=== PATIENT | male | born 1945 | race Caucasian/White ===

== ENCOUNTER → 2019-03-18 07:30 | Outpatient (CLI) | payer MEDICARE, OTHER, SELFPAY ==
[2019-03-18 10:11] LABS: Add Manual Diff / Slide Review NO; Basophils Absolute Auto 100 /uL (0-100); Basophils Percent Auto 1.1 % (0-2); Eosinophils Absolute Auto 100 /uL (0-450); Hematocrit 43.4 % (41-53); Hemoglobin 14.8 g/dL (13.5-17.5); Lymphocytes Absolute Auto 1500 /uL (1100-4500); Lymphocytes Percent Auto 32.9 % (25-40); Mean Corpuscular HGB Conc 34.1 % (30-36); Mean Corpuscular Hemoglobin 32.3 PG (26-34); Mean Corpuscular Volume 94.7 fL (80-100); Monocytes Absolute Auto 300 /uL (0-900); Monocytes Percent Auto 6.8 % (3-14); Neutrophils Absolute Auto 2600 /uL (1500-7000); Neutrophils Percent Auto 57.2 % (50-75); Platelet Count 204 X10^3/uL (150-400); Red Blood Cell Count 4.59 X10^6/uL (4.5-5.9); Red Cell Distribution Width 13.5 % (11.6-14.8); White Blood Cell Count 4.5 X10^3/uL (4.5-11.0)
[2019-03-18 10:19] LABS: Alanine Aminotransferase 24 IU/L (21-72); Albumin 4.4 g/dL (3.5-5.0); Albumin Globulin Ratio 1.5 (1.0-2.8); Alkaline Phosphatase 79 U/L (38-126); Aspartate Aminotransferase 65 IU/L (17-59); Bilirubin Total 0.6 mg/dL (0.2-1.3); Blood Urea Nitrogen 16 mg/dL (9-20); Carbon Dioxide 28 mmol/L (22-32); Chloride 105 mmol/L (98-107); Cholesterol 218 mg/dL (140-199); Estimated Glomerular Filt Rate > 60.0 mL/min (>60); Glucose 96 mg/dL (80-110); HDL Cholesterol 69 mg/dL (40-60); HEMOLYSIS 24 (0-50); LDL Cholesterol Calculated 128 mg/dL (<100); Potassium 4.1 mmol/L (3.4-5.1); Sodium 141 mmol/L (137-145); Total Protein 7.4 g/dL (6.3-8.2); Triglycerides 104 mg/dL (35-150)
[2019-03-18 10:49] LABS: Prostate Specific Antigen Scrn 5.23 ng/mL (0.1-4.0); TSH w/ Reflex to FT4 2.63 uIU/mL (0.47-4.68)
== END ==
PROVIDERS: PCP Family Medicine; Visit Provider Family Medicine
DX: E78.5 Hyperlipidemia, unspecified (principal); Z12.5 Encounter for screening for malignant neoplasm of prostate
CPT/HCPCS: 36415; 80053; 80061; 84443; 85025; G0103

== ENCOUNTER → 2019-05-14 11:03 | Outpatient (CLI) | payer MEDICARE, OTHER, SELFPAY ==
[2019-05-17 14:14] LABS: Fecal Immunochemical Test NOT DETECTED (NOT DETECTED)
== END ==
PROVIDERS: PCP Family Medicine; Visit Provider Family Medicine
DX: E78.5 Hyperlipidemia, unspecified (principal); G40.909 Epilepsy, unspecified, not intractable, without status epilepticus; N40.0 Benign prostatic hyperplasia without lower urinary tract symptoms
CPT/HCPCS: 82274

== ENCOUNTER 2021-01-23 09:00 | Outpatient (RCR) | payer MEDICARE, OTHER, SELFPAY ==
--- NOTE | 2020-12-27 13:46 | PT.OIE ---
Current Diagnoses Dizziness and giddiness (12/27/20) Past Medical History (Last Updated 05/17/19 @ 13:34 by Kavon Call MD) Nail fungus Past Surgical History History of tonsillectomy Status post hernia repair Status post hernia repair Visit Care Team Role Provider Type Kavon Call MD Family Provider Physician Primary Care Provider Specialty: Family Practice Address: [facility] [place], [address] Email: [email or web address] Stas Aggarwal MD Attending Provider Physician Referring Provider Specialty: Ear, Nose, Throat Address: [address] [place] [address], [address] Email: [email or web address] Physical Therapy Initial Evaluation PT-OP-A Visit Information Start: 12/27/20 10:01 Freq: Status: Active Protocol: Document 12/27/20 10:28 MB (Rec: 12/27/20 10:48 MB [id number]) Out-Patient Physical Therapy Visit Information Visit Information Visit Type Initial Evaluation Visit Note Medicare [employer] Pt goes by Vj Visit Start Time 10:28 Visit Stop Time 11:13 Total Visit Minutes 45 Visit Number 1 Evaluation Information Evaluation Date 12/27/20 PT-OP-B Current Condition Start: 12/27/20 10:01 Freq: Status: Active Protocol: Document 12/27/20 10:28 MB (Rec: 12/27/20 10:48 MB [id number]) Current Condition History of Current Condition Onset Date 2-3 years Current Complaints Occasional unsteadiness History of Current Condition Pt reports dizziness with change of position such as moving from supine to sitting and sitting to standing. He reports unsteadiness. He has stumbled a couple of times, including [place] walking on the dock. He caught himself by his hand. Pt reports tinnitus in right ear. He doesn't notice his hearing loss. Pt doesn't know if his symptoms picked up when he stopped exercising over COVID. He thinks they might have. He used to go to [facility]. He walked on the treadmill and did lunges. He did some upper body exercising as well. Pt denies: numbnes and tingling, vision changes, history of concussion, recent performance of sit-ups, anemia , weakness, trouble swallowing , B12 deficiency, overhead lifting, eye pressure changes, history of whiplash, chiropractor treatment, TMJ problems, headaches. Pt reports: occ aural fullness , hearing change, tinnitus, sinus/allergy issues and pt takes Benadryl as needed. PMH includes skin cancer, enlarged prostate, hand surgery and seizures. He takes daily meds for his prostate. He drinks 3-4 cups of coffee in the morning, a couple of beers and 1 bottle of pop during the day. Pt reports bulging disc C4-6 area. Pt denies spinning sensation when lying down. Prior Treatments and Tests Pt has not had PT in the past Treatment Goals Patient/Caregiver Goals To decrease the unsteadiness PT-OP-C Subjective Start: 12/27/20 10:01 Freq: Status: Active Protocol: Document 12/27/20 10:28 MB (Rec: 12/27/20 10:48 MB [id number]) Patient Questionnaires Dizziness Handicap Inventory DHI Score 12 DHI Functional Impairment 1 to 19% Impaired (Score 1-19) PT-OP-H Neuro Start: 12/27/20 10:01 Freq: Status: Active Protocol: Document 12/27/20 10:28 MB (Rec: 12/27/20 13:33 MB [id number]) Sensation Evaluation Gross Sensation Gross Sensation WNL Coordination Evaluation Upper Extremity Tests Left Finger to Nose Test Normal Performance Pronation/Supination Test Normal Performance Right Finger to Nose Test Normal Performance Pronation/Supination Test Normal Performance Lower Extremity Tests Left Foot Tapping Test Minimal Impairment Right Foot Tapping Test Normal Performance Comments Coordination Comments Finger to nose test is pt touching his nose and then PT' s nose 5x quickly Toe tapping test is pt tapping with toes of one foot over opposite foot and he is more dysmetric with LLE Vital Signs Comments Vital Signs Comments Orthostatic assessment is negative with BP and HR in LUE : supine 154/78, 62; standing 143/86, 77 and standing 1' 150 /85, 68. Pt reports transient dizziness when getting up quickly to the left and this is the side he gets OOB and has his dizziness at home PT-OP-J Posture/Palpation/Skin Start: 12/27/20 10:01 Freq: Status: Active Protocol: Document 12/27/20 10:28 MB (Rec: 12/27/20 13:46 MB [id number]) Posture Evaluation Comments Posture Comments Standing posture: forward head with left tragus 2 in front of left AC joint, Dowager's hump PT-OP-K Range of Motion Start: 12/27/20 10:01 Freq: Status: Active Protocol: Document 12/27/20 10:28 MB (Rec: 12/27/20 13:46 MB [id number]) Cervical Spine Range of Motion Cervical Spine Active Testing Position Standing Flexion 40 Extension 30 Rotation Left 30 Rotation Right 40 Lateral Flexion Left 5 Lateral Flexion Right 8 Comments Some transient dizziness with moving head from flexion to forward gaze Shoulder Goniometric Range of Motion Shoulder Bilateral Shoulder ROM WFL Yes PT-OP-M Strength Start: 12/27/20 10:01 Freq: Status: Active Protocol: Document 12/27/20 10:28 MB (Rec: 12/27/20 13:46 MB [id number]) Shoulder Strength Shoulder Manual Muscle Testing Bilateral Flexion 5 Normal Adduction 5 Normal Hip Strength Hip Manual Muscle Testing Bilateral Flexion (L2) 5 Normal Ankle/Foot Strength Ankle and Foot Manual Muscle Testing Bilateral Dorsiflexion (L4) 5 Normal PT-OP-O Vestibular Start: 12/27/20 10:01 Freq: Status: Active Protocol: Document 12/27/20 10:28 MB (Rec: 12/27/20 13:46 MB [id number]) Vestibular Assessment Visual Testing Smooth Pursuits Horizontal WNLs Smooth Pursuits Vertical WNLs Saccades Horizontal Normal Gaze Evoked Nystagmus With Fixation Normal Convergence Test WFLs Spontaneous Nystagmus Negative Positional Testing [place]-Hallpike Negative Left,Negative Right Rolling Test Negative Left,Negative Right Comments Vestibular Comments Right pupil does not readily constrict to light compared to the left Pt does not relax neck well enough for Head Impulse Test Pt does report a history of neck discomfort and changes with dizziness with moving from flexion to forward gaze Some dizziness with right roll test and no nystagmus, symptoms only slight PT-OP-Q Treatments Start: 12/27/20 10:01 Freq: Status: Active Protocol: Document 12/27/20 10:28 MB (Rec: 12/27/20 13:28 MB [id number]) Self-Care/Home Management Treatment Education Other Education Ed pt in benefits of drinking more non-caffeinated fluid intake and that caffeine and alcohol are diuretics, proper sleeping position with towel roll support at neck. Initial education about vestibular, BPPV, cervical, and orthostatic dizziness presentations and symptoms PT-OP-T Assessment and Plan Start: 12/27/20 10:01 Freq: Status: Active Protocol: Document 12/27/20 10:28 MB (Rec: 12/27/20 13:46 MB [id number]) Physical Therapy Assessment Rehab Potential Rehabilitation Potential Good Evaluation Complexity Number of Personal Factors/Comorbidities 1-2 Number of Body Systems Impaired 3 Clinical Presentation at Evaluation Evolving Impairments Impairments Activity Tolerance,Balance, Coordination,Pain,Posture,ROM, Soft Tissue Mobility, Vestibular Other Impairments Personal factors include 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 Body systems affected include vestibular, musculoskeletal and neurological with history of right ear tinnitus, hearing change, seizures that he cannot state are in remission or not d/t feels like he does not know if he has them at night-time when sleeping, and cervical changes. His clinical presentation is evolving Other Concerns Fall Risk Yes Goals 2 Wrist Hemmer Goal (LTG) Pt will perform progressive HEP with I including VOR, posture, cervical and balance exercises to improve balance and symptoms by 02/26/21. LTG Duration 8 weeks 1 Wrist Hemmer Goal (LTG) Pt will present WNLs on FGA balance test to decrease fall risk by 02/26/21. LTG Duration 8 weeks Assessment Summary Assessment Pt is a 75 y/o male presenting with reports of unsteadiness and transient dizziness when rolling and moving from supine to sit and stand today. BPPV and orthostatic testing are negative. He presents with cervical changes and does have symptoms when moving from flexed cervical position to forward gaze. PT feels he does have a cervical component to his symptoms. He does not relax neck well enough to check for VOR hypofunction and he does likely have this as a component of his symptoms as well. Will check this and balance in future treatment dates. Pt reports hearing changes in his right ear especially, allergies and history of seizures and these may all contribute to his symptoms. He will benefit from PT to improve posture, flexibility, balance and VOR. Physical Therapy Plan Frequency and Duration Frequency of Treatment 2x/Week Duration of Treatment 8 weeks Plan of Care Start Date 12/27/20 Plan of Care End Date 02/26/21 Therapeutic Interventions Therapeutic Interventions Balance Training,Canalithic Repositioning,Coordination Training,Gait Training,Home Exercise Program,Manual Therapy,Neuromuscular Re- education,Patient/Caregiver Education,Self-Care/Home Management,Soft Tissue Mobilization,Therapeutic Exercises,Vestibular Rehabilitation Modalities Cold Pack/Ice Massage,Hot Packs Next Visit Focus/Plan Next Note Type Treatment Note Next Visit Plan Assess VOR, balance
--- NOTE | 2020-12-27 13:46 | PT.OPPOC ---
Physical, Occupational & Speech Therapy At [facility] Current Diagnoses Dizziness and giddiness (12/27/20) Visit Care Team Role Provider Type Kavon Call MD Family Provider Physician Primary Care Provider Specialty: Family Practice Address: [facility] [place], [address] Email: [email or web address] Stas Aggarwal MD Attending Provider Physician Referring Provider Specialty: Ear, Nose, Throat Address: [address] [place] [address], [address] Email: [email or web address] Plan Of Care PT-OP-T Assessment and Plan Start: 12/27/20 10:01 Freq: Status: Active Protocol: Document 12/27/20 10:28 MB (Rec: 12/27/20 13:46 MB [id number]) Physical Therapy Assessment Rehab Potential Rehabilitation Potential Good Evaluation Complexity Number of Personal Factors/Comorbidities 1-2 Number of Body Systems Impaired 3 Clinical Presentation at Evaluation Evolving Impairments Impairments Activity Tolerance,Balance, Coordination,Pain,Posture,ROM, Soft Tissue Mobility, Vestibular Other Impairments Personal factors include 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 Body systems affected include vestibular, musculoskeletal and neurological with history of right ear tinnitus, hearing change, seizures that he cannot state are in remission or not d/t feels like he does not know if he has them at night-time when sleeping, and cervical changes. His clinical presentation is evolving Other Concerns Fall Risk Yes Goals 2 Photography Instructor Goal (LTG) Pt will perform progressive HEP with I including VOR, posture, cervical and balance exercises to improve balance and symptoms by 02/26/21. LTG Duration 8 weeks 1 [facility] Goal (LTG) Pt will present WNLs on FGA balance test to decrease fall risk by 02/26/21. LTG Duration 8 weeks Assessment Summary Assessment Pt is a 75 y/o male presenting with reports of unsteadiness and transient dizziness when rolling and moving from supine to sit and stand today. BPPV and orthostatic testing are negative. He presents with cervical changes and does have symptoms when moving from flexed cervical position to forward gaze. PT feels he does have a cervical component to his symptoms. He does not relax neck well enough to check for VOR hypofunction and he does likely have this as a component of his symptoms as well. Will check this and balance in future treatment dates. Pt reports hearing changes in his right ear especially, allergies and history of seizures and these may all contribute to his symptoms. He will benefit from PT to improve posture, flexibility, balance and VOR. Physical Therapy Plan Frequency and Duration Frequency of Treatment 2x/Week Duration of Treatment 8 weeks Plan of Care Start Date 12/27/20 Plan of Care End Date 02/26/21 Therapeutic Interventions Therapeutic Interventions Balance Training,Canalithic Repositioning,Coordination Training,Gait Training,Home Exercise Program,Manual Therapy,Neuromuscular Re- education,Patient/Caregiver Education,Self-Care/Home Management,Soft Tissue Mobilization,Therapeutic Exercises,Vestibular Rehabilitation Modalities Cold Pack/Ice Massage,Hot Packs Next Visit Focus/Plan Next Note Type Treatment Note Next Visit Plan Assess VOR, balance Plan of Care Dates Plan of Care Start Date 12/27/20 Plan of Care End Date 02/26/21 Electronically Signed by: Yessi Walters, PT 12/27/20 [id number] Please Sign and Return: I have reviewed this Plan of Care and certify that the skilled therapy services above are required to meet the patient?s needs. Physician Signature Date Printed Name and Credentials Clinical Instructor Signature Printed Name and Credentials
--- NOTE | 2020-12-29 13:43 | PT.OTN ---
Current Diagnoses Dizziness and giddiness (12/29/20) Physical Therapy Treatment Note PT-OP-A Visit Information Start: 12/27/20 10:01 Freq: Status: Active Protocol: Document 12/29/20 13:05 MB (Rec: 12/29/20 13:06 MB [id number]) Out-Patient Physical Therapy Visit Information Visit Information Visit Type Treatment Note Visit Note Medicare [employer] Pt is late to appointment Visit Start Time 13:05 Visit Stop Time 13:43 Total Visit Minutes 38 Visit Number 2 PT-OP-B Current Condition Start: 12/27/20 10:01 Freq: Status: Active Protocol: Document 12/27/20 10:28 MB (Rec: 12/27/20 10:48 MB [id number]) Current Condition History of Current Condition Onset Date 2-3 years Current Complaints Occasional unsteadiness History of Current Condition Pt reports dizziness with change of position such as moving from supine to sitting and sitting to standing. He reports unsteadiness. He has stumbled a couple of times, [place] the dock[place] He caught himself by his hand. Pt reports tinnitus in right ear. He doesn't notice his hearing loss. Pt doesn't know if his symptoms picked up when he stopped exercising over COVID. He thinks they might have. He used to go to [facility]. He walked on the treadmill and did lunges. He did some upper body exercising as well. Pt denies: numbnes and tingling, vision changes, history of concussion, recent performance of sit-ups, anemia , weakness, trouble swallowing , B12 deficiency, overhead lifting, eye pressure changes, history of whiplash, chiropractor treatment, TMJ problems, headaches. Pt reports: occ aural fullness , hearing change, tinnitus, sinus/allergy issues and pt takes Benadryl as needed. PMH includes skin cancer, enlarged prostate, hand surgery and seizures. He takes daily meds for his prostate. He drinks 3-4 cups of coffee in the morning, a couple of beers and 1 bottle of pop during the day. Pt reports bulging disc C4-6 area. Pt denies spinning sensation when lying down. Prior Treatments and Tests Pt has not had PT in the past Treatment Goals Patient/Caregiver Goals To decrease the unsteadiness PT-OP-C Subjective Start: 12/27/20 10:01 Freq: Status: Active Protocol: Document 12/29/20 13:05 MB (Rec: 12/29/20 13:29 MB [id number]) OP-PT Subjective Patient Comments Patient Comments Pt states that he is feeling fine. He is working on his hydration. PT-OP-H Neuro Start: 12/27/20 10:01 Freq: Status: Active Protocol: Document 12/27/20 10:28 MB (Rec: 12/27/20 13:33 MB [id number]) Sensation Evaluation Gross Sensation Gross Sensation WNL Coordination Evaluation Upper Extremity Tests Left Finger to Nose Test Normal Performance Pronation/Supination Test Normal Performance Right Finger to Nose Test Normal Performance Pronation/Supination Test Normal Performance Lower Extremity Tests Left Foot Tapping Test Minimal Impairment Right Foot Tapping Test Normal Performance Comments Coordination Comments Finger to nose test is pt touching his nose and then PT' s nose 5x quickly Toe tapping test is pt tapping with toes of one foot over opposite foot and he is more dysmetric with LLE Vital Signs Comments Vital Signs Comments Orthostatic assessment is negative with BP and HR in LUE : supine 154/78, 62; standing 143/86, 77 and standing 1' 150 /85, 68. Pt reports transient dizziness when getting up quickly to the left and this is the side he gets OOB and has his dizziness at home PT-OP-J Posture/Palpation/Skin Start: 12/27/20 10:01 Freq: Status: Active Protocol: Document 12/27/20 10:28 MB (Rec: 12/27/20 13:46 MB [id number]) Posture Evaluation Comments Posture Comments Standing posture: forward head with left tragus 2 in front of left AC joint, Dowager's hump PT-OP-K Range of Motion Start: 12/27/20 10:01 Freq: Status: Active Protocol: Document 12/27/20 10:28 MB (Rec: 12/27/20 13:46 MB [id number]) Cervical Spine Range of Motion Cervical Spine Active Testing Position Standing Flexion 40 Extension 30 Rotation Left 30 Rotation Right 40 Lateral Flexion Left 5 Lateral Flexion Right 8 Comments Some transient dizziness with moving head from flexion to forward gaze Shoulder Goniometric Range of Motion Shoulder Bilateral Shoulder ROM WFL Yes PT-OP-M Strength Start: 12/27/20 10:01 Freq: Status: Active Protocol: Document 12/27/20 10:28 MB (Rec: 12/27/20 13:46 MB [id number]) Shoulder Strength Shoulder Manual Muscle Testing Bilateral Flexion 5 Normal Adduction 5 Normal Hip Strength Hip Manual Muscle Testing Bilateral Flexion (L2) 5 Normal Ankle/Foot Strength Ankle and Foot Manual Muscle Testing Bilateral Dorsiflexion (L4) 5 Normal PT-OP-O Vestibular Start: 12/27/20 10:01 Freq: Status: Active Protocol: Document 12/27/20 10:28 MB (Rec: 12/27/20 13:46 MB [id number]) Vestibular Assessment Visual Testing Smooth Pursuits Horizontal WNLs Smooth Pursuits Vertical WNLs Saccades Horizontal Normal Gaze Evoked Nystagmus With Fixation Normal Convergence Test WFLs Spontaneous Nystagmus Negative Positional Testing [place]-Hallpike Negative Left,Negative Right Rolling Test Negative Left,Negative Right Comments Vestibular Comments Right pupil does not readily constrict to light compared to the left Pt does not relax neck well enough for Head Impulse Test Pt does report a history of neck discomfort and changes with dizziness with moving from flexion to forward gaze Some dizziness with right roll test and no nystagmus, symptoms only slight PT-OP-Q Treatments Start: 12/27/20 10:01 Freq: Status: Active Protocol: Document 12/29/20 13:05 MB (Rec: 12/29/20 13:29 MB [id number]) Neuro Re-Education Treatment Balance Activities Corner balance Comments Romberg eyes open no trouble, some sway with EC Tandem with LOB every 2 sec with each leg behind--harder with the left foot behind SLS: Multiple trials and cues to keep opposite leg up in front of him SLS deferred as pt demonstrates and gets out of position quickly FGA Comments Score is 22/30 today and pt occ scuffs left foot and has ataxic-type movement of left foot, bumps into rail on the left on steps PT-OP-T Assessment and Plan Start: 12/27/20 10:01 Freq: Status: Active Protocol: Document 12/29/20 13:05 MB (Rec: 12/29/20 13:06 MB [id number]) Physical Therapy Assessment Rehab Potential Rehabilitation Potential Good Evaluation Complexity Number of Personal Factors/Comorbidities 1-2 Number of Body Systems Impaired 3 Clinical Presentation at Evaluation Evolving Impairments Impairments Activity Tolerance,Balance, Coordination,Pain,Posture,ROM, Soft Tissue Mobility, Vestibular Other Impairments 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 Body systems affected include vestibular, musculoskeletal and neurological with history of right ear tinnitus, hearing change, seizures that he cannot state are in remission or not d/t feels like he does not know if he has them at night-time when sleeping, and cervical changes. His clinical presentation is evolving Other Concerns Fall Risk Yes Goals 2 Skilled Nursing Goal (LTG) Pt will perform progressive HEP with I including VOR, posture, cervical and balance exercises to improve balance and symptoms by 02/26/21. LTG Duration 8 weeks 1 Skilled Nursing Goal (LTG) Pt will present WNLs on FGA balance test to decrease fall risk by 02/26/21. LTG Duration 8 weeks Assessment Summary Assessment Extensive time today performing balance activities and then creating HEP handout and reviewing with patient. He does have some LLE differences compared to the right with some ataxia/ imbalance. Con't to monitor. Physical Therapy Plan Frequency and Duration Frequency of Treatment 2x/Week Duration of Treatment 8 weeks Plan of Care Start Date 12/27/20 Plan of Care End Date 02/26/21 Therapeutic Interventions Therapeutic Interventions Balance Training,Canalithic Repositioning,Coordination Training,Gait Training,Home Exercise Program,Manual Therapy,Neuromuscular Re- education,Patient/Caregiver Education,Self-Care/Home Management,Soft Tissue Mobilization,Therapeutic Exercises,Vestibular Rehabilitation Modalities Cold Pack/Ice Massage,Hot Packs Next Visit Focus/Plan Next Note Type Treatment Note Next Visit Plan VOR via DVA testing
--- NOTE | 2021-01-04 13:01 | PT.OTN ---
Current Diagnoses Dizziness and giddiness (01/04/21) Physical Therapy Treatment Note PT-OP-A Visit Information Start: 12/27/20 10:01 Freq: Status: Active Protocol: Document 01/04/21 12:17 MB (Rec: 01/04/21 12:56 MB [id number]) Out-Patient Physical Therapy Visit Information Visit Information Visit Type Treatment Note Visit Note Medicare [employer] Visit Start Time 12:17 Visit Stop Time 13:00 Total Visit Minutes 43 Visit Number 3 PT-OP-B Current Condition Start: 12/27/20 10:01 Freq: Status: Active Protocol: Document 12/27/20 10:28 MB (Rec: 12/27/20 10:48 MB [id number]) Current Condition History of Current Condition Onset Date 2-3 years Current Complaints Occasional unsteadiness History of Current Condition Pt reports dizziness with change of position such as moving from supine to sitting and sitting to standing. He reports unsteadiness. He has stumbled a couple of times, including [place] walking on the dock. He caught himself by his hand. Pt reports tinnitus in right ear. He doesn't notice his hearing loss. Pt doesn't know if his symptoms picked up when he stopped exercising over COVID. He thinks they might have. He used to go to [employer]. He walked on the treadmill and did lunges. He did some upper body exercising as well. Pt denies: numbnes and tingling, vision changes, history of concussion, recent performance of sit-ups, anemia , weakness, trouble swallowing , B12 deficiency, overhead lifting, eye pressure changes, history of whiplash, chiropractor treatment, TMJ problems, headaches. Pt reports: occ aural fullness , hearing change, tinnitus, sinus/allergy issues and pt takes Benadryl as needed. PMH includes skin cancer, enlarged prostate, hand surgery and seizures. He takes daily meds for his prostate. He drinks 3-4 cups of coffee in the morning, a couple of beers and 1 bottle of pop during the day. Pt reports bulging disc C4-6 area. Pt denies spinning sensation when lying down. Prior Treatments and Tests Pt has not had PT in the past Treatment Goals Patient/Caregiver Goals To decrease the unsteadiness PT-OP-C Subjective Start: 12/27/20 10:01 Freq: Status: Active Protocol: Document 01/04/21 12:17 MB (Rec: 01/04/21 12:56 MB [id number]) OP-PT Subjective Patient Comments Patient Comments It's surprising how fatiguing that is for my left leg especially. Pt states that SLS and tandem gait is difficult. PT-OP-H Neuro Start: 12/27/20 10:01 Freq: Status: Active Protocol: Document 12/27/20 10:28 MB (Rec: 12/27/20 13:33 MB [id number]) Sensation Evaluation Gross Sensation Gross Sensation WNL Coordination Evaluation Upper Extremity Tests Left Finger to Nose Test Normal Performance Pronation/Supination Test Normal Performance Right Finger to Nose Test Normal Performance Pronation/Supination Test Normal Performance Lower Extremity Tests Left Foot Tapping Test Minimal Impairment Right Foot Tapping Test Normal Performance Comments Coordination Comments Finger to nose test is pt touching his nose and then PT' s nose 5x quickly Toe tapping test is pt tapping with toes of one foot over opposite foot and he is more dysmetric with LLE Vital Signs Comments Vital Signs Comments Orthostatic assessment is negative with BP and HR in LUE : supine 154/78, 62; standing 143/86, 77 and standing 1' 150 /85, 68. Pt reports transient dizziness when getting up quickly to the left and this is the side he gets OOB and has his dizziness at home PT-OP-J Posture/Palpation/Skin Start: 12/27/20 10:01 Freq: Status: Active Protocol: Document 12/27/20 10:28 MB (Rec: 12/27/20 13:46 MB [id number]) Posture Evaluation Comments Posture Comments Standing posture: forward head with left tragus 2 in front of left AC joint, Dowager's hump PT-OP-K Range of Motion Start: 12/27/20 10:01 Freq: Status: Active Protocol: Document 12/27/20 10:28 MB (Rec: 12/27/20 13:46 MB [id number]) Cervical Spine Range of Motion Cervical Spine Active Testing Position Standing Flexion 40 Extension 30 Rotation Left 30 Rotation Right 40 Lateral Flexion Left 5 Lateral Flexion Right 8 Comments Some transient dizziness with moving head from flexion to forward gaze Shoulder Goniometric Range of Motion Shoulder Bilateral Shoulder ROM WFL Yes PT-OP-M Strength Start: 12/27/20 10:01 Freq: Status: Active Protocol: Document 12/27/20 10:28 MB (Rec: 12/27/20 13:46 MB [id number]) Shoulder Strength Shoulder Manual Muscle Testing Bilateral Flexion 5 Normal Adduction 5 Normal Hip Strength Hip Manual Muscle Testing Bilateral Flexion (L2) 5 Normal Ankle/Foot Strength Ankle and Foot Manual Muscle Testing Bilateral Dorsiflexion (L4) 5 Normal PT-OP-O Vestibular Start: 12/27/20 10:01 Freq: Status: Active Protocol: Document 12/27/20 10:28 MB (Rec: 12/27/20 13:46 MB [id number]) Vestibular Assessment Visual Testing Smooth Pursuits Horizontal WNLs Smooth Pursuits Vertical WNLs Saccades Horizontal Normal Gaze Evoked Nystagmus With Fixation Normal Convergence Test WFLs Spontaneous Nystagmus Negative Positional Testing Timmy-Hallpike Negative Left,Negative Right Rolling Test Negative Left,Negative Right Comments Vestibular Comments Right pupil does not readily constrict to light compared to the left Pt does not relax neck well enough for Head Impulse Test Pt does report a history of neck discomfort and changes with dizziness with moving from flexion to forward gaze Some dizziness with right roll test and no nystagmus, symptoms only slight PT-OP-Q Treatments Start: 12/27/20 10:01 Freq: Status: Active Protocol: Document 01/04/21 12:17 MB (Rec: 01/04/21 12:56 MB [id number]) Neuro Re-Education Treatment Vestibular Rehabilitation DVA testing and exercise Comments Pt with greater than 2 line difference for reading large eye chart in hallway with horizontal and vertical head turns Using eye chart to give to pt: started sitting and then advanced to standing: eye chart 10 feet away and pt standing behind chair. Second from bottom E and pt performs horizontal and vertical head turns standing behind chair up to 1 minute. Performed with Romberg 15 sec and pt feels floaty. Another set with horizontal head turns and feet together 45 sec and it it more challenging Pt may try with glasses at home and he dons in treatment to try. Vertical head movement is more difficult for pt to control and this challenges his Romberg balance less than horizontal head turns PT-OP-T Assessment and Plan Start: 12/27/20 10:01 Freq: Status: Active Protocol: Document 01/04/21 12:17 MB (Rec: 01/04/21 12:56 MB [id number]) Physical Therapy Assessment Rehab Potential Rehabilitation Potential Good Evaluation Complexity Number of Personal Factors/Comorbidities 1-2 Number of Body Systems Impaired 3 Clinical Presentation at Evaluation Evolving Impairments Impairments Activity Tolerance,Balance, Coordination,Pain,Posture,ROM, Soft Tissue Mobility, Vestibular Other Impairments Personal factors include 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 Body systems affected include vestibular, musculoskeletal and neurological with history of right ear tinnitus, hearing change, seizures that he cannot state are in remission or not d/t feels like he does not know if he has them at night-time when sleeping, and cervical changes. His clinical presentation is evolving Other Concerns Fall Risk Yes Goals 2 Income Tax Manager Goal (LTG) Pt will perform progressive HEP with I including VOR, posture, cervical and balance exercises to improve balance and symptoms by 02/26/21. LTG Duration 8 weeks 1 Jail Goal (LTG) Pt will present WNLs on FGA balance test to decrease fall risk by 02/26/21. LTG Duration 8 weeks Assessment Summary Assessment DVA testing and VOR exercise training take up the treatment time and he performs well and is able to perform standing in Romberg and with glasses donned. Provided vertical and horizontal head turns and provided exercise for home. Physical Therapy Plan Frequency and Duration Frequency of Treatment 2x/Week Duration of Treatment 8 weeks Plan of Care Start Date 12/27/20 Plan of Care End Date 02/26/21 Therapeutic Interventions Therapeutic Interventions Balance Training,Canalithic Repositioning,Coordination Training,Gait Training,Home Exercise Program,Manual Therapy,Neuromuscular Re- education,Patient/Caregiver Education,Self-Care/Home Management,Soft Tissue Mobilization,Therapeutic Exercises,Vestibular Rehabilitation Modalities Cold Pack/Ice Massage,Hot Packs Next Visit Focus/Plan Next Note Type Treatment Note Next Visit Plan Progress balance exercises from FGA, consider postural training for thoracic spine and neck, hip strengthening in standing
--- NOTE | 2021-01-05 13:46 | PT.OTN ---
Current Diagnoses Dizziness and giddiness (01/05/21) Physical Therapy Treatment Note PT-OP-A Visit Information Start: 12/27/20 10:01 Freq: Status: Active Protocol: Document 01/05/21 13:01 MB (Rec: 01/05/21 13:38 MB [id number]) Out-Patient Physical Therapy Visit Information Visit Information Visit Type Treatment Note Visit Note [employer] Visit Start Time 13:01 Visit Stop Time 13:39 Total Visit Minutes 38 Visit Number 4 PT-OP-B Current Condition Start: 12/27/20 10:01 Freq: Status: Active Protocol: Document 12/27/20 10:28 MB (Rec: 12/27/20 10:48 MB [id number]) Current Condition History of Current Condition Onset Date 2-3 years Current Complaints Occasional unsteadiness History of Current Condition Pt reports dizziness with change of position such as moving from supine to sitting and sitting to standing. He reports unsteadiness. He has stumbled a couple of times, [place] He caught himself by his hand. Pt reports tinnitus in right ear. He doesn't notice his hearing loss. Pt doesn't know if his symptoms picked up when he stopped exercising over COVID. He thinks they might have. He used to go to [employer]. He walked on the treadmill and did lunges. He did some upper body exercising as well. Pt denies: numbnes and tingling, vision changes, history of concussion, recent performance of sit-ups, anemia , weakness, trouble swallowing , B12 deficiency, overhead lifting, eye pressure changes, history of whiplash, chiropractor treatment, TMJ problems, headaches. Pt reports: occ aural fullness , hearing change, tinnitus, sinus/allergy issues and pt takes Benadryl as needed. PMH includes skin cancer, enlarged prostate, hand surgery and seizures. He takes daily meds for his prostate. He drinks 3-4 cups of coffee in the morning, a couple of beers and 1 bottle of pop during the day. Pt reports bulging disc C4-6 area. Pt denies spinning sensation when lying down. Prior Treatments and Tests Pt has not had PT in the past Treatment Goals Patient/Caregiver Goals To decrease the unsteadiness PT-OP-C Subjective Start: 12/27/20 10:01 Freq: Status: Active Protocol: Document 01/05/21 13:01 MB (Rec: 01/05/21 13:38 MB [id number]) OP-PT Subjective Patient Comments Patient Comments It's surprising how tired it made me. PT-OP-H Neuro Start: 12/27/20 10:01 Freq: Status: Active Protocol: Document 12/27/20 10:28 MB (Rec: 12/27/20 13:33 MB [id number]) Sensation Evaluation Gross Sensation Gross Sensation WNL Coordination Evaluation Upper Extremity Tests Left Finger to Nose Test Normal Performance Pronation/Supination Test Normal Performance Right Finger to Nose Test Normal Performance Pronation/Supination Test Normal Performance Lower Extremity Tests Left Foot Tapping Test Minimal Impairment Right Foot Tapping Test Normal Performance Comments Coordination Comments Finger to nose test is pt touching his nose and then PT' s nose 5x quickly Toe tapping test is pt tapping with toes of one foot over opposite foot and he is more dysmetric with LLE Vital Signs Comments Vital Signs Comments Orthostatic assessment is negative with BP and HR in LUE : supine 154/78, 62; standing 143/86, 77 and standing 1' 150 /85, 68. Pt reports transient dizziness when getting up quickly to the left and this is the side he gets OOB and has his dizziness at home PT-OP-J Posture/Palpation/Skin Start: 12/27/20 10:01 Freq: Status: Active Protocol: Document 12/27/20 10:28 MB (Rec: 12/27/20 13:46 MB [id number]) Posture Evaluation Comments Posture Comments Standing posture: forward head with left tragus 2 in front of left AC joint, Dowager's hump PT-OP-K Range of Motion Start: 12/27/20 10:01 Freq: Status: Active Protocol: Document 12/27/20 10:28 MB (Rec: 12/27/20 13:46 MB [id number]) Cervical Spine Range of Motion Cervical Spine Active Testing Position Standing Flexion 40 Extension 30 Rotation Left 30 Rotation Right 40 Lateral Flexion Left 5 Lateral Flexion Right 8 Comments Some transient dizziness with moving head from flexion to forward gaze Shoulder Goniometric Range of Motion Shoulder Bilateral Shoulder ROM WFL Yes PT-OP-M Strength Start: 12/27/20 10:01 Freq: Status: Active Protocol: Document 12/27/20 10:28 MB (Rec: 12/27/20 13:46 MB [id number]) Shoulder Strength Shoulder Manual Muscle Testing Bilateral Flexion 5 Normal Adduction 5 Normal Hip Strength Hip Manual Muscle Testing Bilateral Flexion (L2) 5 Normal Ankle/Foot Strength Ankle and Foot Manual Muscle Testing Bilateral Dorsiflexion (L4) 5 Normal PT-OP-O Vestibular Start: 12/27/20 10:01 Freq: Status: Active Protocol: Document 12/27/20 10:28 MB (Rec: 12/27/20 13:46 MB [id number]) Vestibular Assessment Visual Testing Smooth Pursuits Horizontal WNLs Smooth Pursuits Vertical WNLs Saccades Horizontal Normal Gaze Evoked Nystagmus With Fixation Normal Convergence Test WFLs Spontaneous Nystagmus Negative Positional Testing Timmy-Hallpike Negative Left,Negative Right Rolling Test Negative Left,Negative Right Comments Vestibular Comments Right pupil does not readily constrict to light compared to the left Pt does not relax neck well enough for Head Impulse Test Pt does report a history of neck discomfort and changes with dizziness with moving from flexion to forward gaze Some dizziness with right roll test and no nystagmus, symptoms only slight PT-OP-Q Treatments Start: 12/27/20 10:01 Freq: Status: Active Protocol: Document 01/05/21 13:01 MB (Rec: 01/05/21 13:38 MB [id number]) Therapeutic Exercises Standing Exercises Hip abduction crab walk and backwards walking Side bilateral Resistance Level 1 band around ankles Comments 3x to the right and left, 4x backwards Neuro Re-Education Treatment Balance Activities FGA Comments FGA balance activities: no trouble with gait quickly around 6 cones in hallway x2. Stepping over 5 mini hurdles in hallway with normal gait speed and increased gait speed : cues to clear feet better over jozef by lifting leg/ flexing hip and pt does have trouble doing this occ and improves with practice and does present with increased fatigue with reps PT beside pt: cues for right, left, up and down looking ( head turns) with gait, transitioning between backwards walking, tandem walking and eyes closed walking. Cues for pt to slow down and focus on form for all balance tasks and most trouble with tandem Vestibular Rehabilitation VOR exercise with eye chart Comments Pt focusing on E second from bottom and he occ has shoulders moving with horizontal head turns, standing with feet Romberg Vertical head turns more troublesome for neck control PT-OP-T Assessment and Plan Start: 12/27/20 10:01 Freq: Status: Active Protocol: Document 01/05/21 13:01 MB (Rec: 01/05/21 13:38 MB [id number]) Physical Therapy Assessment Rehab Potential Rehabilitation Potential Good Evaluation Complexity Number of Personal Factors/Comorbidities 1-2 Number of Body Systems Impaired 3 Clinical Presentation at Evaluation Evolving Impairments Impairments Activity Tolerance,Balance, Coordination,Pain,Posture,ROM, Soft Tissue Mobility, Vestibular Other Impairments Personal factors include 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 Body systems affected include vestibular, musculoskeletal and neurological with history of right ear tinnitus, hearing change, seizures that he cannot state are in remission or not d/t feels like he does not know if he has them at night-time when sleeping, and cervical changes. His clinical presentation is evolving Other Concerns Fall Risk Yes Goals 2 [facility] Goal (LTG) Pt will perform progressive HEP with I including VOR, posture, cervical and balance exercises to improve balance and symptoms by 02/26/21. LTG Duration 8 weeks 1 Filing Machine Operator Goal (LTG) Pt will present WNLs on FGA balance test to decrease fall risk by 02/26/21. LTG Duration 8 weeks Assessment Summary Assessment Reviewed VOR exercise and progressed LE strengthening and balance challenges today and pt performs well. He con't to present with decreased left greater than right hip flexion and foot clearance stepping over mini hurdles. Physical Therapy Plan Frequency and Duration Frequency of Treatment 2x/Week Duration of Treatment 8 weeks Plan of Care Start Date 12/27/20 Plan of Care End Date 02/26/21 Therapeutic Interventions Therapeutic Interventions Balance Training,Canalithic Repositioning,Coordination Training,Gait Training,Home Exercise Program,Manual Therapy,Neuromuscular Re- education,Patient/Caregiver Education,Self-Care/Home Management,Soft Tissue Mobilization,Therapeutic Exercises,Vestibular Rehabilitation Modalities Cold Pack/Ice Massage,Hot Packs Next Visit Focus/Plan Next Note Type Treatment Note Next Visit Plan Progress balance exercises from FGA outside, consider postural training for thoracic spine and neck (scapular retraction and shoulder ER with band in standing, open book with elbows bent and rib breathing)
--- NOTE | 2021-01-08 14:57 | PT.OTN ---
Current Diagnoses Dizziness and giddiness (01/08/21) Physical Therapy Treatment Note PT-OP-A Visit Information Start: 12/27/20 10:01 Freq: Status: Active Protocol: Document 01/08/21 08:17 MB (Rec: 01/08/21 08:46 MB [id number]) Out-Patient Physical Therapy Visit Information Visit Information Visit Type Treatment Note Visit Note Medicare [employer] Visit Start Time 08:17 Visit Stop Time 09:00 Total Visit Minutes 43 Visit Number 5 PT-OP-B Current Condition Start: 12/27/20 10:01 Freq: Status: Active Protocol: Document 12/27/20 10:28 MB (Rec: 12/27/20 10:48 MB [id number]) Current Condition History of Current Condition Onset Date 2-3 years Current Complaints Occasional unsteadiness History of Current Condition Pt reports dizziness with change of position such as moving from supine to sitting and sitting to standing. He reports unsteadiness. He has stumbled a couple of times, including when walking on the dock. He caught himself by his hand. Pt reports tinnitus in right ear. He doesn't notice his hearing loss. Pt doesn't know if his symptoms picked up when he stopped exercising over COVID. He thinks they might have. He used to go to [employer]. He walked on the treadmill and did lunges. He did some upper body exercising as well. Pt denies: numbnes and tingling, vision changes, history of concussion, recent performance of sit-ups, anemia , weakness, trouble swallowing , B12 deficiency, overhead lifting, eye pressure changes, history of whiplash, chiropractor treatment, TMJ problems, headaches. Pt reports: occ aural fullness , hearing change, tinnitus, sinus/allergy issues and pt takes Benadryl as needed. PMH includes skin cancer, enlarged prostate, hand surgery and seizures. He takes daily meds for his prostate. He drinks 3-4 cups of coffee in the morning, a couple of beers and 1 bottle of pop during the day. Pt reports bulging disc C4-6 area. Pt denies spinning sensation when lying down. Prior Treatments and Tests Pt has not had PT in the past Treatment Goals Patient/Caregiver Goals To decrease the unsteadiness PT-OP-C Subjective Start: 12/27/20 10:01 Freq: Status: Active Protocol: Document 01/08/21 08:17 MB (Rec: 01/08/21 08:46 MB [id number]) OP-PT Subjective Patient Comments Patient Comments Pt states that he would like to go over the VOR exercise again. PT-OP-H Neuro Start: 12/27/20 10:01 Freq: Status: Active Protocol: Document 12/27/20 10:28 MB (Rec: 12/27/20 13:33 MB [id number]) Sensation Evaluation Gross Sensation Gross Sensation WNL Coordination Evaluation Upper Extremity Tests Left Finger to Nose Test Normal Performance Pronation/Supination Test Normal Performance Right Finger to Nose Test Normal Performance Pronation/Supination Test Normal Performance Lower Extremity Tests Left Foot Tapping Test Minimal Impairment Right Foot Tapping Test Normal Performance Comments Coordination Comments Finger to nose test is pt touching his nose and then PT' s nose 5x quickly Toe tapping test is pt tapping with toes of one foot over opposite foot and he is more dysmetric with LLE Vital Signs Comments Vital Signs Comments Orthostatic assessment is negative with BP and HR in LUE : supine 154/78, 62; standing 143/86, 77 and standing 1' 150 /85, 68. Pt reports transient dizziness when getting up quickly to the left and this is the side he gets OOB and has his dizziness at home PT-OP-J Posture/Palpation/Skin Start: 12/27/20 10:01 Freq: Status: Active Protocol: Document 12/27/20 10:28 MB (Rec: 12/27/20 13:46 MB [id number]) Posture Evaluation Comments Posture Comments Standing posture: forward head with left tragus 2 in front of left AC joint, Dowager's hump PT-OP-K Range of Motion Start: 12/27/20 10:01 Freq: Status: Active Protocol: Document 12/27/20 10:28 MB (Rec: 12/27/20 13:46 MB [id number]) Cervical Spine Range of Motion Cervical Spine Active Testing Position Standing Flexion 40 Extension 30 Rotation Left 30 Rotation Right 40 Lateral Flexion Left 5 Lateral Flexion Right 8 Comments Some transient dizziness with moving head from flexion to forward gaze Shoulder Goniometric Range of Motion Shoulder Bilateral Shoulder ROM WFL Yes PT-OP-M Strength Start: 12/27/20 10:01 Freq: Status: Active Protocol: Document 12/27/20 10:28 MB (Rec: 12/27/20 13:46 MB [id number]) Shoulder Strength Shoulder Manual Muscle Testing Bilateral Flexion 5 Normal Adduction 5 Normal Hip Strength Hip Manual Muscle Testing Bilateral Flexion (L2) 5 Normal Ankle/Foot Strength Ankle and Foot Manual Muscle Testing Bilateral Dorsiflexion (L4) 5 Normal PT-OP-O Vestibular Start: 12/27/20 10:01 Freq: Status: Active Protocol: Document 12/27/20 10:28 MB (Rec: 12/27/20 13:46 MB [id number]) Vestibular Assessment Visual Testing Smooth Pursuits Horizontal WNLs Smooth Pursuits Vertical WNLs Saccades Horizontal Normal Gaze Evoked Nystagmus With Fixation Normal Convergence Test WFLs Spontaneous Nystagmus Negative Positional Testing Timmy-Hallpike Negative Left,Negative Right Rolling Test Negative Left,Negative Right Comments Vestibular Comments Right pupil does not readily constrict to light compared to the left Pt does not relax neck well enough for Head Impulse Test Pt does report a history of neck discomfort and changes with dizziness with moving from flexion to forward gaze Some dizziness with right roll test and no nystagmus, symptoms only slight PT-OP-Q Treatments Start: 12/27/20 10:01 Freq: Status: Active Protocol: Document 01/08/21 08:17 MB (Rec: 01/08/21 08:46 MB [id number]) Therapeutic Exercises Sidelying Exercises Open book with elbows bent and rib breathing Side bilateral Comments Nasal breathing and letting elbow fall out, pect stretch, hold Standing Exercises Scapular retraction and shoulder ER Side bilateral Equipment Used Level 1 band Comments 10 reps each side, cues for posture Neuro Re-Education Treatment Balance Activities Corner balance Comments Tandem standing with left foot behind in corner for up to 15 sec before loss of balance into wall to the right and more often, happens in less time. Right foot behind is a little better. Ed pt to try to relax posture. He can hold with right foot behind up to 20 sec before LOB to the left FGA Comments FGA tasks outside on the grass and sidewalk, with most on the grass: head turns right and left, up and down, backwards walking, tandem walking, changing gait speeds. No eyes closed walking outside. Pt does not scuff his left foot today and walks well outside. Vestibular Rehabilitation VOR exercise with eye chart Comments Practiced exercise in Romberg position with horizontal and vertical head turns again today and pt performs well with cues PT-OP-T Assessment and Plan Start: 12/27/20 10:01 Freq: Status: Active Protocol: Document 01/08/21 08:17 MB (Rec: 01/08/21 08:46 MB [id number]) Physical Therapy Assessment Rehab Potential Rehabilitation Potential Good Evaluation Complexity Number of Personal Factors/Comorbidities 1-2 Number of Body Systems Impaired 3 Clinical Presentation at Evaluation Evolving Impairments Impairments Activity Tolerance,Balance, Coordination,Pain,Posture,ROM, Soft Tissue Mobility, Vestibular Other Impairments Personal factors include 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 Body systems affected include vestibular, musculoskeletal and neurological with history of right ear tinnitus, hearing change, seizures that he cannot state are in remission or not d/t feels like he does not know if he has them at night-time when sleeping, and cervical changes. His clinical presentation is evolving Other Concerns Fall Risk Yes Goals 2 Shelter Goal (LTG) Pt will perform progressive HEP with I including VOR, posture, cervical and balance exercises to improve balance and symptoms by 02/26/21. LTG Duration 8 weeks 1 Shelter Goal (LTG) Pt will present WNLs on FGA balance test to decrease fall risk by 02/26/21. LTG Duration 8 weeks Assessment Summary Assessment Reviewed VOR exercise again and provided feedback about when to stop, how much to move head, and other cues. Initiated postural exercises today as well. Balance training outside goes well. Will progress VOR exercises in future treatments. Physical Therapy Plan Frequency and Duration Frequency of Treatment 2x/Week Duration of Treatment 8 weeks Plan of Care Start Date 12/27/20 Plan of Care End Date 02/26/21 Therapeutic Interventions Therapeutic Interventions Balance Training,Canalithic Repositioning,Coordination Training,Gait Training,Home Exercise Program,Manual Therapy,Neuromuscular Re- education,Patient/Caregiver Education,Self-Care/Home Management,Soft Tissue Mobilization,Therapeutic Exercises,Vestibular Rehabilitation Modalities Cold Pack/Ice Massage,Hot Packs Next Visit Focus/Plan Next Note Type Treatment Note Next Visit Plan Progress VOR exercises with letter
--- NOTE | 2021-01-11 10:29 | PT.OTN ---
Current Diagnoses Dizziness and giddiness (01/11/21) Physical Therapy Treatment Note PT-OP-A Visit Information Start: 12/27/20 10:01 Freq: Status: Active Protocol: Document 01/11/21 09:49 MB (Rec: 01/11/21 10:22 MB [id number]) Out-Patient Physical Therapy Visit Information Visit Information Visit Type Treatment Note Visit Note Medicare [employer] Visit Start Time 09:49 Visit Stop Time 10:17 Total Visit Minutes 28 Visit Number 6 PT-OP-B Current Condition Start: 12/27/20 10:01 Freq: Status: Active Protocol: Document 12/27/20 10:28 MB (Rec: 12/27/20 10:48 MB [id number]) Current Condition History of Current Condition Onset Date 2-3 years Current Complaints Occasional unsteadiness History of Current Condition Pt reports dizziness with change of position such as moving from supine to sitting and sitting to standing. He reports unsteadiness. He has stumbled a couple of times, including [place] walking [place] the dock[place] He caught himself by his hand. Pt reports tinnitus in right ear. He doesn't notice his hearing loss. Pt doesn't know if his symptoms picked up when he stopped exercising over COVID. He thinks they might have. He used to go to [employer]. He walked on the treadmill and did lunges. He did some upper body exercising as well. Pt denies: numbnes and tingling, vision changes, history of concussion, recent performance of sit-ups, anemia , weakness, trouble swallowing , B12 deficiency, overhead lifting, eye pressure changes, history of whiplash, chiropractor treatment, TMJ problems, headaches. Pt reports: occ aural fullness , hearing change, tinnitus, sinus/allergy issues and pt takes Benadryl as needed. PMH includes skin cancer, enlarged prostate, hand surgery and seizures. He takes daily meds for his prostate. He drinks 3-4 cups of coffee in the morning, a couple of beers and 1 bottle of pop during the day. Pt reports bulging disc C4-6 area. Pt denies spinning sensation when lying down. Prior Treatments and Tests Pt has not had PT in the past Treatment Goals Patient/Caregiver Goals To decrease the unsteadiness PT-OP-C Subjective Start: 12/27/20 10:01 Freq: Status: Active Protocol: Document 01/11/21 09:49 MB (Rec: 01/11/21 10:22 MB [id number]) OP-PT Subjective Patient Comments Patient Comments Pt states that he would like to make a schedule for his exercises. PT-OP-H Neuro Start: 12/27/20 10:01 Freq: Status: Active Protocol: Document 12/27/20 10:28 MB (Rec: 12/27/20 13:33 MB [id number]) Sensation Evaluation Gross Sensation Gross Sensation WNL Coordination Evaluation Upper Extremity Tests Left Finger to Nose Test Normal Performance Pronation/Supination Test Normal Performance Right Finger to Nose Test Normal Performance Pronation/Supination Test Normal Performance Lower Extremity Tests Left Foot Tapping Test Minimal Impairment Right Foot Tapping Test Normal Performance Comments Coordination Comments Finger to nose test is pt touching his nose and then PT' s nose 5x quickly Toe tapping test is pt tapping with toes of one foot over opposite foot and he is more dysmetric with LLE Vital Signs Comments Vital Signs Comments Orthostatic assessment is negative with BP and HR in LUE : supine 154/78, 62; standing 143/86, 77 and standing 1' 150 /85, 68. Pt reports transient dizziness when getting up quickly to the left and this is the side he gets OOB and has his dizziness at home PT-OP-J Posture/Palpation/Skin Start: 12/27/20 10:01 Freq: Status: Active Protocol: Document 12/27/20 10:28 MB (Rec: 12/27/20 13:46 MB [id number]) Posture Evaluation Comments Posture Comments Standing posture: forward head with left tragus 2 in front of left AC joint, Dowager's hump PT-OP-K Range of Motion Start: 12/27/20 10:01 Freq: Status: Active Protocol: Document 12/27/20 10:28 MB (Rec: 12/27/20 13:46 MB [id number]) Cervical Spine Range of Motion Cervical Spine Active Testing Position Standing Flexion 40 Extension 30 Rotation Left 30 Rotation Right 40 Lateral Flexion Left 5 Lateral Flexion Right 8 Comments Some transient dizziness with moving head from flexion to forward gaze Shoulder Goniometric Range of Motion Shoulder Bilateral Shoulder ROM WFL Yes PT-OP-M Strength Start: 12/27/20 10:01 Freq: Status: Active Protocol: Document 12/27/20 10:28 MB (Rec: 12/27/20 13:46 MB [id number]) Shoulder Strength Shoulder Manual Muscle Testing Bilateral Flexion 5 Normal Adduction 5 Normal Hip Strength Hip Manual Muscle Testing Bilateral Flexion (L2) 5 Normal Ankle/Foot Strength Ankle and Foot Manual Muscle Testing Bilateral Dorsiflexion (L4) 5 Normal PT-OP-O Vestibular Start: 12/27/20 10:01 Freq: Status: Active Protocol: Document 12/27/20 10:28 MB (Rec: 12/27/20 13:46 MB [id number]) Vestibular Assessment Visual Testing Smooth Pursuits Horizontal WNLs Smooth Pursuits Vertical WNLs Saccades Horizontal Normal Gaze Evoked Nystagmus With Fixation Normal Convergence Test WFLs Spontaneous Nystagmus Negative Positional Testing Timmy-Hallpike Negative Left,Negative Right Rolling Test Negative Left,Negative Right Comments Vestibular Comments Right pupil does not readily constrict to light compared to the left Pt does not relax neck well enough for Head Impulse Test Pt does report a history of neck discomfort and changes with dizziness with moving from flexion to forward gaze Some dizziness with right roll test and no nystagmus, symptoms only slight PT-OP-Q Treatments Start: 12/27/20 10:01 Freq: Status: Active Protocol: Document 01/11/21 09:49 MB (Rec: 01/11/21 10:22 MB [id number]) Therapeutic Exercises Other Exercises Revised HEP and wrote out schedule Comments Performed this today and provided handout, see HEP goal Neuro Re-Education Treatment Other Activities VOR and balance exercises Comments Pt standing and holding letter a: eyes on letter and card moved right and left and up and down, Romberg to partial Tandem standing; eyes on a and card moved right and left and up and down too easy and so marked out this exercise for home; standing in Romberg, eyes on a and head and letter moved opposite directions right and left and up and down; convergence with eyes on letter, Romberg and partial tandem. 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 Body systems affected include vestibular, musculoskeletal and neurological with history of right ear tinnitus, hearing change, seizures that he cannot state are in remission or not d/t feels like he does not know if he has them at night-time when sleeping, and cervical changes. His clinical presentation is evolving Other Concerns Fall Risk Yes Goals 2 Special Investigator Goal (LTG) Pt will perform progressive HEP with I including VOR, posture, cervical and balance exercises to improve balance and symptoms by 02/26/21. 01/11/21: Revised HEP: 6x/wk: balance walking exercises: head turns right and left and tandem walking; corner balance exercises: tandem standing and single leg standing; vestibular exercises (alternate eye chart on wall and letter a). M/W/ F: leg band exercises: backwards walking and crab walking. Tu//Sat: ER and scapular retraction with band LTG Duration 8 weeks 1 Senior Care Goal (LTG) Pt will present WNLs on FGA balance test to decrease fall risk by 02/26/21. LTG Duration 8 weeks Assessment Summary Assessment Pt has progressed beautifully with PT and revised his HEP today and added another VOR exercise option that he can do when he isn't near his eye chart and to incorporate balance. Will keep next appointment and cancel the rest, prepare for d/c. Physical Therapy Plan Frequency and Duration Frequency of Treatment 2x/Week Duration of Treatment 8 weeks Plan of Care Start Date 12/27/20 Plan of Care End Date 02/26/21 Therapeutic Interventions Therapeutic Interventions Balance Training,Canalithic Repositioning,Coordination Training,Gait Training,Home Exercise Program,Manual Therapy,Neuromuscular Re- education,Patient/Caregiver Education,Self-Care/Home Management,Soft Tissue Mobilization,Therapeutic Exercises,Vestibular Rehabilitation Modalities Cold Pack/Ice Massage,Hot Packs Next Visit Focus/Plan Next Note Type Discharge Summary
--- NOTE | 2021-01-23 09:38 | PT.OTN ---
Current Diagnoses Dizziness and giddiness (01/23/21) Physical Therapy Treatment Note PT-OP-A Visit Information Start: 12/27/20 10:01 Freq: Status: Active Protocol: Document 01/23/21 09:01 MB (Rec: 01/23/21 09:38 MB [id number]) Out-Patient Physical Therapy Visit Information Visit Information Visit Type Treatment Note Visit Note Medicare [employer] Visit Start Time 09:01 Visit Stop Time 09:30 Total Visit Minutes 29 Visit Number 7 PT-OP-B Current Condition Start: 12/27/20 10:01 Freq: Status: Active Protocol: Document 12/27/20 10:28 MB (Rec: 12/27/20 10:48 MB [id number]) Current Condition History of Current Condition Onset Date 2-3 years Current Complaints Occasional unsteadiness History of Current Condition Pt reports dizziness with change of position such as moving from supine to sitting and sitting to standing. He reports unsteadiness. He has stumbled a couple of times, [place] He caught himself by his hand. Pt reports tinnitus in right ear. He doesn't notice his hearing loss. Pt doesn't know if his symptoms picked up when he stopped exercising over COVID. He thinks they might have. He used to go to [employer]. He walked on the treadmill and did lunges. He did some upper body exercising as well. Pt denies: numbnes and tingling, vision changes, history of concussion, recent performance of sit-ups, anemia , weakness, trouble swallowing , B12 deficiency, overhead lifting, eye pressure changes, history of whiplash, chiropractor treatment, TMJ problems, headaches. Pt reports: occ aural fullness , hearing change, tinnitus, sinus/allergy issues and pt takes Benadryl as needed. PMH includes skin cancer, enlarged prostate, hand surgery and seizures. He takes daily meds for his prostate. He drinks 3-4 cups of coffee in the morning, a couple of beers and 1 bottle of pop during the day. Pt reports bulging disc C4-6 area. Pt denies spinning sensation when lying down. Prior Treatments and Tests Pt has not had PT in the past Treatment Goals Patient/Caregiver Goals To decrease the unsteadiness PT-OP-C Subjective Start: 12/27/20 10:01 Freq: Status: Active Protocol: Document 01/23/21 09:01 MB (Rec: 01/23/21 09:38 MB [id number]) OP-PT Subjective Patient Comments Patient Comments Pt states that he notices that when he does the head turns to the right when he is walking, he is more likely to miss a step. He had a couple of days where he felt that there was something in his right ear. PT-OP-H Neuro Start: 12/27/20 10:01 Freq: Status: Active Protocol: Document 12/27/20 10:28 MB (Rec: 12/27/20 13:33 MB [id number]) Sensation Evaluation Gross Sensation Gross Sensation WNL Coordination Evaluation Upper Extremity Tests Left Finger to Nose Test Normal Performance Pronation/Supination Test Normal Performance Right Finger to Nose Test Normal Performance Pronation/Supination Test Normal Performance Lower Extremity Tests Left Foot Tapping Test Minimal Impairment Right Foot Tapping Test Normal Performance Comments Coordination Comments Finger to nose test is pt touching his nose and then PT' s nose 5x quickly Toe tapping test is pt tapping with toes of one foot over opposite foot and he is more dysmetric with LLE Vital Signs Comments Vital Signs Comments Orthostatic assessment is negative with BP and HR in LUE : supine 154/78, 62; standing 143/86, 77 and standing 1' 150 /85, 68. Pt reports transient dizziness when getting up quickly to the left and this is the side he gets OOB and has his dizziness at home PT-OP-J Posture/Palpation/Skin Start: 12/27/20 10:01 Freq: Status: Active Protocol: Document 12/27/20 10:28 MB (Rec: 12/27/20 13:46 MB [id number]) Posture Evaluation Comments Posture Comments Standing posture: forward head with left tragus 2 in front of left AC joint, Dowager's hump PT-OP-K Range of Motion Start: 12/27/20 10:01 Freq: Status: Active Protocol: Document 12/27/20 10:28 MB (Rec: 12/27/20 13:46 MB [id number]) Cervical Spine Range of Motion Cervical Spine Active Testing Position Standing Flexion 40 Extension 30 Rotation Left 30 Rotation Right 40 Lateral Flexion Left 5 Lateral Flexion Right 8 Comments Some transient dizziness with moving head from flexion to forward gaze Shoulder Goniometric Range of Motion Shoulder Bilateral Shoulder ROM WFL Yes PT-OP-M Strength Start: 12/27/20 10:01 Freq: Status: Active Protocol: Document 12/27/20 10:28 MB (Rec: 12/27/20 13:46 MB [id number]) Shoulder Strength Shoulder Manual Muscle Testing Bilateral Flexion 5 Normal Adduction 5 Normal Hip Strength Hip Manual Muscle Testing Bilateral Flexion (L2) 5 Normal Ankle/Foot Strength Ankle and Foot Manual Muscle Testing Bilateral Dorsiflexion (L4) 5 Normal PT-OP-O Vestibular Start: 12/27/20 10:01 Freq: Status: Active Protocol: Document 12/27/20 10:28 MB (Rec: 12/27/20 13:46 MB [id number]) Vestibular Assessment Visual Testing Smooth Pursuits Horizontal WNLs Smooth Pursuits Vertical WNLs Saccades Horizontal Normal Gaze Evoked Nystagmus With Fixation Normal Convergence Test WFLs Spontaneous Nystagmus Negative Positional Testing [place]-Hallpike Negative Left,Negative Right Rolling Test Negative Left,Negative Right Comments Vestibular Comments Right pupil does not readily constrict to light compared to the left Pt does not relax neck well enough for Head Impulse Test Pt does report a history of neck discomfort and changes with dizziness with moving from flexion to forward gaze Some dizziness with right roll test and no nystagmus, symptoms only slight PT-OP-Q Treatments Start: 12/27/20 10:01 Freq: Status: Active Protocol: Document 01/23/21 09:01 MB (Rec: 01/23/21 09:38 MB [id number]) Neuro Re-Education Treatment Balance Activities Corner balance Comments Practiced corner exercises of tandem and SLS and pt does have some imbalance, many reps of practice FGA Comments FGA score is 27/30 and perform FGA tasks for HEP review today PT-OP-T Assessment and Plan Start: 12/27/20 10:01 Freq: Status: Active Protocol: Document 01/23/21 09:01 MB (Rec: 01/23/21 09:38 MB [id number]) Physical Therapy Assessment Goals 2 [employer] Goal (LTG) Pt will perform progressive HEP with I including VOR, posture, cervical and balance exercises to improve balance and symptoms by 02/26/21. 01/23/21: Revised HEP: 6x/wk: balance walking exercises: head turns right and left and tandem walking ( he has not been performing tandem walking as much as he can); corner balance exercises : tandem standing and single leg standing; vestibular exercises (alternate eye chart on wall and letter a). M/W/ F: leg band exercises: backwards walking and crab walking. Tu//Sat: ER and scapular retraction with band (he has not been performing band exercises as much as he should) LTG Duration 8 weeks 1 Half-Way Goal (LTG) Pt will present WNLs on FGA balance test to decrease fall risk by 02/26/21. 01/23/21: FGA score is 27/30 and pt has most trouble with tandem walking and walking with horizontal head turns LTG Duration 8 weeks Assessment Summary Assessment Pt has met PT goals including balance and HEP goals and will con't to perform exercises at d/c. Will d/c PT. Pt does con 't to have postural and balance challenges and he may benefit from PT in the future if needed.
== END 2021-01-23 09:58 | disposition home or self-care (01) ==
LOC: PHYS 09:00
PROVIDERS: Family Provider Family Medicine; PCP Family Medicine; Referring Provider Otolaryngology; Visit Provider Otolaryngology
DX: R42 Dizziness and giddiness (principal)
CPT/HCPCS: 97110; 97112; 97162; 97535

== ENCOUNTER → 2021-05-30 07:00 | Outpatient (CLI) | payer MEDICARE, OTHER, SELFPAY ==
[2021-05-30 08:15] LABS: Alanine Aminotransferase 18 IU/L (<50); Albumin 4.8 g/dL (3.5-5.0); Albumin Globulin Ratio 1.6 (1.0-2.8); Alkaline Phosphatase 73 U/L (38-126); Aspartate Aminotransferase 34 IU/L (17-59); BUN Creatinine Ratio 18.4 (6-22); Bilirubin Total 0.9 mg/dL (0.2-1.3); Blood Urea Nitrogen 19 mg/dL (9-20); Calcium 9.3 mg/dL (8.4-10.2); Carbon Dioxide 28 mmol/L (22-32); Chloride 105 mmol/L (98-107); Cholesterol 278 mg/dL (140-199); Estimated Glomerular Filt Rate > 60.0 mL/min (>60); Glucose 99 mg/dL (80-110); HDL Cholesterol 72 mg/dL (40-60); HEMOLYSIS 28 (0-50); LDL Cholesterol Calculated 182 mg/dL (<100); Potassium 4.7 mmol/L (3.4-5.1); Sodium 141 mmol/L (137-145); Total Protein 7.8 g/dL (6.3-8.2); Triglycerides 121 mg/dL (35-150)
[2021-05-30 08:21] LABS: Add Manual Diff / Slide Review NO; Basophils Absolute Auto 100 /uL (0-100); Basophils Percent Auto 1.1 % (0-2); Eosinophils Absolute Auto 100 /uL (0-450); Eosinophils Percent Auto 2.6 % (2-4); Hematocrit 45.7 % (41-53); Hemoglobin 15.5 g/dL (13.5-17.5); Lymphocytes Absolute Auto 2100 /uL (1100-4500); Mean Corpuscular HGB Conc 33.9 % (30-36); Mean Corpuscular Hemoglobin 32.2 PG (26-34); Mean Corpuscular Volume 94.9 fL (80-100); Monocytes Absolute Auto 400 /uL (0-900); Monocytes Percent Auto 7.9 % (3-14); Neutrophils Absolute Auto 2900 /uL (1500-7000); Neutrophils Percent Auto 51.4 % (50-75); Platelet Count 215 X10^3/uL (150-400); Red Blood Cell Count 4.82 X10^6/uL (4.5-5.9); Red Cell Distribution Width 13.6 % (11.6-14.8); White Blood Cell Count 5.5 X10^3/uL (4.5-11.0)
[2021-05-30 08:54] LABS: Thyroid Stimulating Hormone 2.57 uIU/mL (0.47-4.68)
[2021-05-30 09:04] LABS: Vitamin B12 333 pg/mL (239-931)
== END ==
PROVIDERS: Family Provider Family Medicine; PCP Family Medicine; Referring Provider Physician Assistant; Visit Provider Physician Assistant
DX: E78.5 Hyperlipidemia, unspecified (principal); G40.909 Epilepsy, unspecified, not intractable, without status epilepticus; G45.9 Transient cerebral ischemic attack, unspecified; R26.89 Other abnormalities of gait and mobility
CPT/HCPCS: 36415; 80053; 80061; 82607; 84443; 85025

== ENCOUNTER → 2021-06-04 15:03 | Outpatient (CLI) | payer MEDICARE, OTHER, SELFPAY ==
--- NOTE | 2021-06-27 09:03 | PM.CARDMON.1 ---
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 These events were all associated with sinus rhythm Data: Minimum heart rate identified was 40 beats per minute at 10:46 on 06/06/2021 Maximum sinus heart rate was 152 beats per minute at 16:52 on 06/06/2021 Maximum overall heart rate was 190 beats per minute at 13:46 on 06/04/2021 during a run of SVT Approximately 1.9% of identified beats were supraventricular ectopic in origin which would classify them as occasional Less than 1% of identified beats were ventricular ectopic in origin which would classify them as rare There were 2 runs of nonsustained monomorphic ventricular tachycardia with the fastest being 12 beats at a rate of 139 beats per minute which was also the longest run. There were 206 runs of SVT the fastest being 5 beats at a rate of 190 the longest lasting 25.2 seconds at a rate of 152 beats per minute. 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
== END ==
PROVIDERS: Family Provider Family Medicine; PCP Family Medicine; Referring Provider Physician Assistant; Visit Provider Physician Assistant
DX: G45.9 Transient cerebral ischemic attack, unspecified (principal)
CPT/HCPCS: 93246; 93248

== ENCOUNTER → 2021-06-12 07:51 | Outpatient (CLI) | payer MEDICARE, OTHER, SELFPAY ==
--- NOTE | 2021-06-12 07:53 | DI.CT.S_ITS ---
PROCEDURE: CT ANGIO HEAD AND NECK INDICATIONS: Suspect recurrent TIA's TECHNIQUE: Pre-contrast 4.5 mm thick sections acquired from the foramen magnum to the vertex. After the administration of intravenous contrast, 1 mm thick sections acquired from the aortic arch through the [place]. Post-contrast 4.5 mm thick sections then re-acquired from the foramen magnum to the vertex. 3-dimensional lhoqdbd-ujlnqinuz-fllzcfyohk (MIP) and/or volume rendering reformats were acquired of the central intracranial vasculature and neck separately. COMPARISON: [facility], , C-SPINE WITHOUT CONTRAST, 01/10/2016, 10:35. FINDINGS: Image quality: Excellent. BRAIN: CSF spaces: Ventricles are normal in size and shape. Basal cisterns are patent. No extra-axial fluid collections. Brain: No midline shift. No intracranial bleeds or masses. Melendez-white matter interface appears intact. Skull and face: Calvarium and facial bones appear intact, without suspicious lesions. Orbits appear normal. Sinuses: Sinuses and mastoids are clear. HEAD CT ANGIOGRAPHY: Anterior circulation: Intracranial internal carotid arteries are normal in size and flow. The flow within the paired anterior cerebral arteries is normal and symmetric. The flow within the middle cerebral arteries is normal and symmetric. The anterior communicating artery is not well seen. No aneurysms are seen. Posterior circulation: Visualized portions of the vertebral arteries demonstrate normal caliber, and join to form a normal appearing basilar artery. Flow within the posterior cerebral arteries is normal and symmetric. No aneurysms are seen. NECK CT ANGIOGRAPHY: Carotid system: The great vessels demonstrate a conventional anatomy as they arise from the aortic arch. The origins of the common carotid arteries appear patent. The common carotid arteries demonstrate normal caliber and courses. The bifurcation regions are both widely patent. The internal carotid arteries demonstrate normal calibers and courses. Posterior circulation: The origins of the vertebral arteries both appear widely patent. The more superior extracranial portions of both vertebral arteries also demonstrate normal courses and calibers. They join to form a normal appearing basilar artery. Soft tissues: Visualized neck soft tissues demonstrate no suspicious abnormalities. Bones: No suspicious bony lesions. Visualized cervical spine appears normally aligned. Ronk-ek-bjgkopkh cervical spine degenerative changes are seen. IMPRESSION: No hemodynamically significant stenosis can be seen within the intracranial circulation or within the arteries of the neck. No acute intracranial process is seen. Any quantitative measurements of stenosis were performed using NASCET criteria. Dictated by: Keo Patrick M.D. on 06/12/2021 at 8:22 Approved by: Keo Patrick M.D. on 06/12/2021 at 8:25
== END ==
PROVIDERS: Family Provider Family Medicine; PCP Family Medicine; Referring Provider Physician Assistant; Visit Provider Physician Assistant
DX: G45.9 Transient cerebral ischemic attack, unspecified (principal)
CPT/HCPCS: 70496; 70498; Q9967

== ENCOUNTER → 2021-08-28 07:01 | Outpatient (CLI) | payer MEDICARE, OTHER, SELFPAY ==
[2021-08-28 08:38] LABS: Cholesterol 258 mg/dL (140-199); HDL Cholesterol 82 mg/dL (40-60); LDL Cholesterol Calculated 143 mg/dL (<100); Triglycerides 165 mg/dL (35-150)
== END ==
PROVIDERS: Family Provider Family Medicine; PCP Family Medicine; Referring Provider Physician Assistant; Visit Provider Physician Assistant
DX: E78.5 Hyperlipidemia, unspecified (principal)
CPT/HCPCS: 36415; 80061

== ENCOUNTER → 2021-10-01 10:36 | Outpatient (CLI) | payer MEDICARE, OTHER, SELFPAY ==
[2021-10-01 14:54] LABS: COVID19 -Nasal RAPID Negative (Negative)
== END ==
PROVIDERS: Family Provider Family Medicine; PCP Family Medicine; Visit Provider Physical Medicine & Rehabilitation
DX: Z20.822 Contact with and (suspected) exposure to COVID-19 (principal)
CPT/HCPCS: 87635; C9803

== ENCOUNTER → 2021-10-02 09:49 | Outpatient (CLI) | payer MEDICARE, OTHER, SELFPAY ==
--- NOTE | 2021-10-02 | DI.US.S_ITS ---
PROCEDURE: US RETRO PERITONEAL LIMITED INDICATIONS: HX NICOTINE DEPENDENCE TECHNIQUE: Real time scanning was performed of the aorta and iliac arteries, with image documentation. COMPARISON: None. FINDINGS: Aorta: Proximal aortic diameter measures 2.5 cm. Mid-aorta measures 2.1 cm. Distal aortic diameter is 1.8 cm. Iliac arteries: Right common iliac artery measures 1.1 cm. Left common iliac artery measures 1.2 cm. IMPRESSION: Aortic ectasia. 5 year sonographic follow-up recommended. Dictated by: Ondina Vera M.D. on 10/02/2021 at 15:17 Approved by: Ondina Vera M.D. on 10/02/2021 at 15:18
--- NOTE | 2021-10-02 | DI.ECHO.S_ITS ---
[facility] +---------+ : : [address] [place] [address] : : : : [id number] : : : : Phone: [phone]+ Echocardiogram Report + + :Name: HAYDEE COOL Study Date: 10/02/2021 Height: 73 in : :[facility] ReadingLocation: Weight: 195 lb : : Gender: Male BSA: 2.1 m2 : :: 1945 Age: 76 yrs BP: 140/84 mmHg: :Reason For Study: DYSPNEA, DIZZINESS AND GIDDINESS : :Ordering Physician: JUSTIN, : :SHANNON Gamble Performed By: Kinga Kern : :Referring: SHANNON GANT : + + Interpretation Summary The ejection fraction is estimated to be 60-65%. Diastolic parameters suggest probable normal left ventricular diastolic function and normal filling pressures. The right ventricle is normal in size and function. There is mild tricuspid regurgitation. PASP is approximately 25 to 30 mmHg. Procedure: A two-dimensional transthoracic echocardiogram with color flow and Doppler was performed. The study quality was technically adequate. There is no prior echocardiogram noted for this patient. The patient was in sinus bradycardia with heart rates between 59-65 bpm during the exam. Left Ventricle: The left ventricle is normal in size and wall thickness. The ejection fraction is estimated to be 60-65%. Diastolic parameters suggest probable normal left ventricular diastolic function and normal filling pressures. Right Ventricle: The right ventricle is normal in size and function. Atria: The left atrial size is normal. Right atrial size is normal. There is no Doppler evidence for an interatrial shunt. Mitral Valve: The mitral valve is normal in structure and function. There is trace mitral regurgitation. Aortic Valve: The aortic valve is trileaflet. The aortic valve opens well. There is no aortic valve stenosis. No aortic regurgitation is present. Tricuspid Valve: The tricuspid valve is normal in structure and function. There is mild tricuspid regurgitation. PASP is approximately 25 to 30 mmHg. Pulmonic Valve: The pulmonic valve leaflets are thin and pliable; valve motion is normal. There is mild pulmonic regurgitation. Great Vessels: The aortic root is normal size. The dimensions of the ascending aorta are normal. The IVC is of normal diameter and collapses greater than 50% with a sniff. This suggests a low right atrial pressure of 3 mm Hg. Pericardium/ Pleura There is no pericardial effusion. There is no pleural effusion. MMode/2D Measurements & Calculations LVIDd: 4.5 cm LVOT diam: 2.1 cm LVIDs: 2.8 cm Ao root diam: 3.1 cm FS: 37.9 % asc Aorta Diam: 3.2 cm IVSd: 0.64 cm Ao Arch Diam (Prox Trans): 3.5 cm LVPWd: 0.75 cm LV keller. diameter/BSA (cm/m^2): 2.1 LV sys. diameter/BSA (cm/m^2): 1.3 LA A2 area: 14.0 cm2 RA long axis: 5.6 cm LA A4 area: 20.5 cm2 RA area: 21.3 cm2 LA length (vol): 5.7 cm RA vol: 69.0 ml LA vol: 42.6 ml RA : 32.4 ml/m2 LA vol index: 20.0 ml/m2 IVC diam: 1.5 cm RVD1 (basal): 3.6 cm RVD2 (mid): 3.2 cm TAPSE: 2.7 cm Doppler Measurements & Calculations Ao V2 max: 143.5 cm/sec LVOT Max Maximiliano: 93.3 cm/sec Ao V2 mean: 104.4 cm/sec LV V1 max P.5 mmHg Ao max P.2 mmHg LV V1 VTI: 19.9 cm Ao mean P.7 mmHg PERLITA(I,D): 2.0 cm2 Ao V2 VTI: 34.6 cm PERLITA(V,D): 2.3 cm2 sev ratio: 0.58 PERLITA indexed to BSA (cm^2/m^2): 0.95 MV E max maximiliano: 73.6 cm/sec TR max maximiliano: 238.0 cm/sec MV A max maximiliano: 72.3 cm/sec TR max P.7 mmHg MV E/A: 1.0 PA V2 max: 109.6 cm/sec Med Peak E' Maximiliano: 8.6 cm/sec PA V2 mean: 75.2 cm/sec E/E' med: 8.5 PA mean P.6 mmHg Lat Peak E' Maximiliano: 11.4 cm/sec PA pr(Accel): 8.8 mmHg E/E' lat: 6.4 E/e' average: 7.5 MV dec time: 0.22 sec SV(LVOT): 70.0 ml Reading Physician:09:19 AM
== END ==
PROVIDERS: Family Provider Family Medicine; PCP Family Medicine; Referring Provider Internal Medicine Cardiovascular Disease; Visit Provider Internal Medicine Cardiovascular Disease
DX: R42 Dizziness and giddiness (principal); R06.00 Dyspnea, unspecified; Z87.891 Personal history of nicotine dependence; I77.819 Aortic ectasia, unspecified site; I07.1 Rheumatic tricuspid insufficiency
CPT/HCPCS: 76775; 93306

== ENCOUNTER → 2021-10-17 09:47 | Outpatient (CLI) | payer MEDICARE, OTHER, SELFPAY ==
[2021-10-17 10:43] LABS: COVID19 -Nasal RAPID Negative (Negative)
== END ==
PROVIDERS: Family Provider Family Medicine; PCP Family Medicine; Visit Provider Family Medicine Sleep Medicine
DX: Z20.822 Contact with and (suspected) exposure to COVID-19 (principal)
CPT/HCPCS: 87635

== ENCOUNTER → 2021-10-17 13:00 | Outpatient (CLI) | payer MEDICARE, OTHER, SELFPAY ==
--- NOTE | 2021-10-17 | DI.NM.S_ITS ---
PROCEDURE: NM RAMAN PERF SPECT REST & STR Rest and exercise myocardial perfusion SPECT with gated imaging and ejection fraction RADIOPHARMACEUTICAL: 25.7 mCi Tc-99m sestamibi IV at rest and 26.0 mCi Tc-99m sestamibi IV at peak exercise. A 8-qqw-wsgtjfuo was performed. INDICATIONS: Dyspnea, unspecified TECHNIQUE: Radiopharmaceutical was injected at peak stress test, and also at rest. SPECT images were obtained. SPECT myocardial perfusion images were displayed in short axis, horizontal long axis, and vertical long axis views. Gated images were reviewed using Zigswitch software. COMPARISON: None. CARDIAC STRESS: A standard Sam treadmill exercise tolerance test was performed by the patient under the supervision of an attending staff. The patient exercised for 5 minutes and 30 seconds; 7.0 METS; functional aerobic impairment (ANTWON) is -1%. Hemodynamic data: There is normal blood pressure and heart rate response to exercise stress. Patient achieved 99% of maximum predicted heart rate at peak exercise at 140 bpm. Max BP 162/90. Symptoms: Patient denied chest pain during exercise. EKG: No diagnostic EKG changes of ischemia; PACs noted in recovery. FINDINGS: Raw data: There is good myocardial labeling by radiotracer. No significant motion artifacts. Dzpo-af-pvjva ratio is 0.26 (normal is less than 0.38 for sestamibi tracer, and less than 0.50 for thallium tracer). Left ventricle function: Gated images demonstrate normal left ventricle wall thickening. No segmental wall motion abnormality. No transient ischemic dilation; TID is 0.94 (normal less than 1.3). The left ventricle resting end-diastolic volume is 88 mL. Left ventricle stress ejection fraction is >75%; normal values are above 45%. Myocardial perfusion: There is normal distribution of activity in the left and right ventricular myocardium. No fixed or reversible perfusion defects. IMPRESSION: 1. No evidence of exercise-induced ischemia on ECG or SPECT images. 2. Normal blood pressure response to exercise. 3. Normal exercise capacity. Dictated by: Shannon Gant D.O. on 10/18/2021 at 17:18 Approved by: Shannon Gant M.D. on 10/18/2021 at 17:21
--- NOTE | 2021-10-17 13:05 | DI.RAD.S_ITS ---
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 COMPARISON: [facility], , CHEST 2 VIEW, 05/10/2015, 15:05. FINDINGS: Surgical changes and devices: None. Lungs and pleura: Lungs are clear. No pleural effusions or pneumothorax. Mediastinum: Mediastinal contours are normal. Heart size is normal. Bones and chest wall: No suspicious bony abnormalities. Soft tissues appear unremarkable. IMPRESSION: No acute cardiopulmonary disease. Dictated by: Kushal Pal [facility] Interpreted: Maddie Velarde MD on 10/17/2021 at 13:24 Transcribed by: GARLAND on 10/17/2021 at 13:24 Approved by: Maddie Velarde M.D. on 10/17/2021 at 13:52
== END ==
PROVIDERS: Family Provider Family Medicine; PCP Family Medicine; Referring Provider Internal Medicine Cardiovascular Disease; Visit Provider Internal Medicine Cardiovascular Disease
DX: R06.00 Dyspnea, unspecified (principal); R42 Dizziness and giddiness; E34.0 Carcinoid syndrome; R23.2 Flushing; Z20.822 Contact with and (suspected) exposure to COVID-19
CPT/HCPCS: 71046; 78452; 87635; 93017; C9803; A9502

== ENCOUNTER → 2021-10-25 09:32 | Outpatient (CLI) | payer MEDICARE, OTHER, SELFPAY ==
[2021-11-07 23:02] LABS: 5-HIAA, UR 24HR 5.9 mg/24 hr (0.0-14.9); 5-HIAA, Urine 3.2 mg/L (Undefined)
== END ==
PROVIDERS: Family Provider Family Medicine; PCP Family Medicine; Referring Provider Physician Assistant; Visit Provider Physician Assistant
DX: R23.2 Flushing (principal); R42 Dizziness and giddiness
CPT/HCPCS: 83497

== ENCOUNTER → 2022-06-04 12:01 | Outpatient (CLI) | payer MEDICARE, OTHER, SELFPAY ==
--- NOTE | 2022-06-04 12:04 | DI.MRI.S_ITS ---
PROCEDURE: MR STROKE Pre- and post-contrast brain MRI, non-contrast brain MR angiogram, pre- and postcontrast neck MR angiogram INDICATIONS: short term memory loss; balance problems TECHNIQUE: Brain: Noncontrast axial T1 spin echo, axial T2 fast spin echo, sagittal and axial FLAIR, coronal T2 fast spin echo, axial gradient echo, axial diffusion and ADC through the brain. After the administration of contrast, axial 3D VIBE of the cranial vasculature and brain. Brain MRA: Non-contrast 3-D time of flight MR angiogram, with multiple xxenrcb-hmsfmzujd-fdhuqtlbig (MIP) reformats performed. Neck MRA: Axial and sagittal TruFISP through the neck. Coronal dynamic MR angiogram during administration of contrast in the arterial and venous phases, with 3-dimenstional ibfdhar-srzcceijc-imuadvrjiu (MIP) reformats constructed from subtraction images. COMPARISON: [facility], CT, CT ANGIO HEAD AND NECK, 06/12/2021, 8:01. FINDINGS: Image quality: Excellent. BRAIN: CSF spaces: Ventricles are normal in size and shape. Basal cisterns are patent. No extra-axial fluid collections. Brain: No intracranial bleeds or mass effects. Melendez-white matter interface is normal. Diffusion weighted images show no acute ischemic insults. Brainstem appears normal. Normal intravascular flow voids are present. No abnormal intracranial enhancement. Skull and face: Calvarial marrow signal is normal. Orbits appear normal. Sinuses: Sinuses and mastoids are clear. BRAIN MR ANGIOGRAM: Anterior circulation: Intracranial internal carotid arteries are normal in size and enhancement. The flow within the paired anterior cerebral arteries is normal and symmetric. The flow within the middle cerebral arteries is normal and symmetric. The anterior communicating artery is seen. No stenoses, occlusions, or aneurysms. Posterior circulation: The visualized portions of the vertebral arteries demonstrate normal caliber, and join to form a normal appearing basilar artery. The flow within the posterior cerebral arteries is normal and symmetric. No stenoses, occlusions, or aneurysms. NECK MR ANGIOGRAM: Carotids: Great vessels demonstrate a conventional anatomy as they arise from the aortic arch. The origins of the common carotid arteries appear patent. The calibers and courses of both common carotid arteries are normal. The bifurcation regions appear normal bilaterally. The internal carotid arteries demonstrate normal caliber. Tortuosity can be seen of the internal carotid arteries, particularly on the right. Posterior circulation: The origins of the vertebral arteries appear patent. More superior portions of both vertebral arteries demonstrate normal course and caliber, and join to form a normal appearing basilar artery. Miscellaneous: Subclavian arteries appear patent. Pre-contrast images through the neck show no soft tissue abnormalities. IMPRESSION: BRAIN MRI: No findings of acute or subacute infarction can be seen. Note is made of age-appropriate brain parenchymal volume loss and chronic small vessel ischemic changes. BRAIN MR ANGIOGRAM: No significant intracranial arterial abnormality is seen. NECK MR ANGIOGRAM: Within the arteries of the neck, no hemodynamically significant stenosis can be seen. Dictated by: Keo Patrick M.D. on 06/04/2022 at 14:00 Approved by: Keo Patrick M.D. on 06/04/2022 at 14:07
== END ==
PROVIDERS: Family Provider Family Medicine; PCP Family Medicine; Referring Provider Physician Assistant; Visit Provider Physician Assistant
DX: R41.3 Other amnesia (principal); R26.89 Other abnormalities of gait and mobility
CPT/HCPCS: 70548; 70553; A9579

== ENCOUNTER 2024-01-29 22:36 | Emergency (ER) | payer MEDICARE, OTHER, SELFPAY ==
[2024-01-29 22:53] VITALS: BP 100/58; PULSE 63; RESP 18; TEMP 36.3; O2SAT 95; BMI 23.7
--- NOTE | 2024-01-29 23:32 | PC.NURSE ---
at 2325 pt told SONYA Rios that he was leaving, upon entering room 13 the patient was fully dressed and getting ready to walk out of the department. When this RN tried to intervene he stated that hes been waiting for you for hours, patient was left alone for only 10 minutes. Tried encouraging him to stay and he says you cant make me stay. called over CLIFF Rios and CLIFF Jacobs to help encourage him to stay. CLIFF Jacobs asked to stay and talk for a few minutes and the patient states do you want to talk to my fist. At this time we allowed him to walk out of the department but let him know that we had his keys.
--- NOTE | 2024-01-29 23:40 | PC.NURSE ---
Called over to room 13 by staff members, Pt found outside of room stating he was leaving. Tried to redirect patient into room 13 to once again, discuss the process of being brought in to the department. pt become verbally aggressive saying you can't keep me here do you want want to meet my fist Pt tried to leave department through [facility], was able to redirect patient back into department but could not get him back to room 13. Pt ambulated out ambulance bay doors. Left his car keys, they are labeled and locked in patient belonging cabinet. 911 called and informed patient leaving department. Apd reports if he is brought back if we could restrain him by closing the door to room 13. Informed of department census and decreasing in staff, informed of pages to have help come in. [facility] states would touch base if patient was located.
--- NOTE | 2024-01-30 03:59 | ED.ALCOHOL ---
HPI - Alcohol General Chief Complaint: Toxicology Problem Stated Complaint: altered mental status Time Seen by Provider: 01/29/24 22:40 Source: patient and police Mode of arrival: Ambulatory History of Present Illness HPI narrative: 78-year-old male brought in by police officers found wandering around appearing drunk and confused. They did not feel comfortable bringing patient back home they did contact family patient does have family in the general area but not at home. Family did note patient has a history of dementia. Patient was seen while walking into the department with law enforcement but was not able to fully evaluate the patient before they eloped. Related Data Previous Rx's Medication Instructions Recorded sildenafil 100 mg tablet (Viagra) 100 mg PO DAILY PRN sexual 02/06/23 activity #10 tabs levetiracetam 500 mg tablet 500 mg PO BID #180 tabs 03/05/23 (Keppra) rosuvastatin 10 mg tablet 10 mg PO BEDTIME #90 tabs 08/18/23 terazosin 5 mg capsule 5 mg PO QDAY #30 caps 12/22/23 Allergies Allergy/AdvReac Type Severity Reaction Status Date / Time erythromycin base Allergy Mild Verified 07/03/21 14:52 [ERYTHROMYCIN BASE] Patient History Medical History (Updated 01/30/24 @ 04:04 by Lia Abreu DO) Nail fungus Surgical History (Updated 11/18/17 @ 05:56 by Conversion Provider) Status post hernia repair Status post hernia repair History of tonsillectomy Social History marital status: Smoking Status: Former smoker alcohol intake: current (1-2 A DAY ) substance use type: does not use Smoking Status: Former smoker Exam Narrative Exam Narrative: GENERAL: Alert, clear speech. HEENT: Head normocephalic, atraumatic, EOMI, pupils reactive, face symmetric, moist mucous membranes NECK: Supple, full range of motion EXTREMITIES: Ambulatory in the department. NEUROLOGICAL: Cranial nerves II through XII grossly intact. Moving all extremities SKIN: Warm, dry, no petechiae, no rashes or lesions. Initial Vital Signs Initial Vital Signs: Vital Signs Temperature 97.4 F L 01/29/24 22:53 Pulse Rate 63 01/29/24 22:53 Respiratory Rate 18 01/29/24 22:53 Blood Pressure 100/58 L 01/29/24 22:53 Pulse Oximetry 95 01/29/24 22:53 Oxygen Delivery Method Room Air 01/29/24 22:53 Course Orders Ordered: ED Orders 01/29/24 23:28 Acetaminophen Stat Complete Blood Count AUTO DIFF Stat Comprehensive Metabolic Panel Stat Ethanol (ETOH) Stat Free T4, Direct Thyroxine Stat Salicylate Stat Thyroid Stimulating Hormone Stat Urine Drug Screen, Rapid Stat Vital Signs Vital signs: Vital Signs - 8 hr 01/29/24 22:53 Temperature 97.4 F L Pulse Rate 63 Respiratory Rate 18 Blood Pressure 100/58 L Pulse Oximetry 95 Oxygen Delivery Method Room Air MDM - Alcohol MDM Narrative Medical decision making narrative: Patient has reported known history of dementia, there was concern patient might be intoxicated. Family did note he has memory issues to law enforcement. Plan for workup. Patient eloped from the department after threatening staff that they would meet his fist. Law enforcement was contacted to return patient to the department. Discharge Plan Departure Patient Disposition: Left Without Being Seen Clinical Impression: Patient left without being seen Prescriptions: No Action sildenafil [Viagra] 100 mg tablet 100 mg PO DAILY PRN (Reason: sexual activity) Qty: 10 5RF levetiracetam [Keppra] 500 mg tablet 500 mg PO BID Qty: 180 0RF Rx Instructions: please notify patient, needs to be seen in office rosuvastatin 10 mg tablet 10 mg PO BEDTIME Qty: 90 3RF Rx Instructions: Take one tablet at bedtime for high cholesterol. terazosin 5 mg capsule 5 mg PO QDAY Qty: 30 0RF Rx Instructions: Must be seen for refills
== END 2024-01-29 23:31 | disposition left against medical advice (07) ==
PROVIDERS: Emergency Provider Emergency Medicine; Family Provider Family Medicine; PCP Family Medicine
DX: R41.0 Disorientation, unspecified (principal)
CPT/HCPCS: 99282

== ENCOUNTER 2024-01-30 06:51 | Emergency (ER) | payer MEDICARE, OTHER, SELFPAY ==
[2024-01-30] VITALS (37 sets, daily range): BP systolic 121–153; BP diastolic 57–76; PULSE 65–130; RESP 15–24; TEMP 36.9; O2SAT 94–99; BMI 23.1
--- NOTE | 2024-01-30 06:54 | DI.CT.S_ITS ---
PROCEDURE: CT FACIAL BONES WO CON INDICATIONS: fall TECHNIQUE: Noncontrast 2.5 mm thick axial images acquired from the mandible through the frontal sinuses, with coronal and sagittal reformatting. For radiation dose reduction, the following was used: automated exposure control, adjustment of mA and/or kV according to patient size. COMPARISON: None. FINDINGS: Image quality: Excellent. Bones and teeth: Orbital coffey are intact. Sinus coffey show no fracture or deformity. Nasal bones and septum are intact. Visualized portions of the mandible demonstrate no fractures or subluxation. Zygomatic arches are intact. Pterygoid plates are intact. Visualized portions of the skull base and auditory canals are intact. Sinuses: Paranasal sinuses are aerated, without fluid levels, mucosal thickening, or mucoceles. Mastoid air cells are aerated. Soft tissues: Left periorbital soft tissue edema. collections. No enlarged lymph nodes. No soft tissue lacerations or debris. Vascular: Visualized vascular structures appear normal in the absence of contrast. Bony vascular foramina and canals are intact. IMPRESSION: Left periorbital soft tissue edema. No visualized fracture. Dictated by: Maddie Velarde M.D. on 01/30/2024 at 7:39 Approved by: Maddie Velarde M.D. on 01/30/2024 at 7:41
--- NOTE | 2024-01-30 06:54 | DI.CT.S_ITS ---
PROCEDURE: CT HEAD/BRAIN WO CON INDICATIONS: fall TECHNIQUE: Noncontrast 4.5 mm thick angled axial sections acquired from the foramen magnum to the vertex, with coronal and sagittal reformats. For radiation dose reduction, the following was used: automated exposure control, adjustment of mA and/or kV according to patient size. COMPARISON: None. FINDINGS: Image quality: Diagnostic. CSF spaces: Basal cisterns are patent. No extra-axial fluid collections. The ventricles are symmetric in size and shape. Brain: Small linear areas hyperdensity are present within the sulci bilaterally most prominent in the superior and posterior frontal parietal lobes. Hyperdensity is present along the right para midline of the anterior falx measuring 2.5 mm. Hyperdensity is also present in the right perimesencephalic cistern. There is cerebral volume loss for age, with resultant ventricular and sulcal prominence. There are periventricular and deep white matter chronic small vessel ischemic changes. There is intracranial internal carotid artery atherosclerosis. Skull and face: Calvarium and visualized facial bones appear intact, without suspicious lesions. Left scalp laceration hematoma. Sinuses: Visualized sinuses and mastoids are clear. IMPRESSION: Scattered areas hyperintensity most consistent with subarachnoid hemorrhage as described above. No midline shift. Atrophy and chronic microvascular ischemic changes. Left scalp laceration and hematoma. The above findings are concordant with preliminary report. Dictated by: Maddie Velarde M.D. on 01/30/2024 at 7:43 Approved by: Maddie Velarde M.D. on 01/30/2024 at 7:45
--- NOTE | 2024-01-30 06:54 | DI.RAD.S_ITS ---
PROCEDURE: XR CHEST 1V INDICATIONS: fall TECHNIQUE: One view of the chest was acquired. COMPARISON: [facility], CR, XR CHEST 2V, 10/17/2021, 13:02. FINDINGS: Surgical changes and devices: None. Lungs and pleura: Lungs are clear. No pleural effusions or pneumothorax. Mediastinum: Mediastinal contours appear normal. Heart size is normal. Bones and chest wall: No suspicious bony lesions. Overlying soft tissues appear unremarkable. IMPRESSION: No evidence acute pulmonary process. Comment: Final report is concordant with preliminary interpretation provided by [facility]. Dictated by: Saroj Blankenship M.D. on 01/30/2024 at 8:19 Approved by: Saroj Blankenship M.D. on 01/30/2024 at 8:19
--- NOTE | 2024-01-30 06:54 | DI.CT.S_ITS ---
PROCEDURE: CT CERVICAL SPINE WO CON INDICATIONS: fall TECHNIQUE: Noncontrast 3 mm thick sections acquired from the skull base to the T4 level. Sagittal and coronal reformats were then constructed. For radiation dose reduction, the following was used: automated exposure control, adjustment of mA and/or kV according to patient size. COMPARISON: None. FINDINGS: Image quality: Excellent. Bones: No acute fractures or dislocations. All T4 compression deformity. No visualized fracture or dislocation Visualized superior ribs are intact. Soft tissues: Prevertebral soft tissues are normal in thickness. No paravertebral hematomas. No apical pneumothoraces. IMPRESSION: Multilevel degenerative changes without visualized fracture. The above findings are concordant with preliminary report. Dictated by: Maddie Velarde M.D. on 01/30/2024 at 7:42 Approved by: Maddie Velarde M.D. on 01/30/2024 at 7:43
--- NOTE | 2024-01-30 06:55 | EKG_ITS ---
[place] [id number] [place] [id number] Test Date: 2024-01-30 Pat Name: Blaine Borrero Department: [facility] Room: Gender: Male [employer]: KEILY : 1945 Requested By: Order Number: [id number] Reading MD: Piero Carrillo MD Measurements Intervals [place] Rate: 105 P: 61 [place]: 148 QRS: 39 QRSD: 72 T: 51 QT: 346 QTc: 457 Interpretive Statements Sinus tachycardia with premature atrial complexes Electronically Signed On 01-30-2024 12:28:58 PDT by Piero Carrillo MD
--- NOTE | 2024-01-30 07:01 | ED.FALL ---
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 results. She is aware that he will be transferring to [facility]. It is clear that patient is not safe at home alone. Significant other understands this. <BASIM Hill - Last Filed: 01/30/24 15:43> Lab Data Labs: Lab Results 01/30/24 01/30/24 01/30/24 Range/Units 07:31 07:31 07:31 WBC 16.1 H (4.5-11.0) X10^3/uL RBC 4.08 L (4.5-5.9) X10^6/uL Hgb 13.3 L (13.5-17.5) g/dL Hct 40.2 L (41-53) % MCV 98.5 (80-100) fL MCH 32.7 (26-34) PG MCHC 33.1 (30-36) % RDW 14.1 (11.6-14.8) % Plt Count 176 (150-400) X10^3/uL Neut % (Auto) 86.3 H (50-75) % Lymph % (Auto) 2.4 L (25-40) % [place] % (Auto) 11.1 (3-14) % Eos % (Auto) 0.0 L (2-4) % Baso % (Auto) 0.2 (0-2) % Neut # (Auto) 37316 H (8054-5084) /uL Lymph # (Auto) 400 L (7806-1646) /uL [place] # (Auto) 1800 H (0-900) /uL Eos # (Auto) 0 (0-450) /uL Baso # (Auto) 0 (0-100) /uL PT 12.4 (9.4-12.5) SECONDS INR 1.1 (0.9-1.3) APTT 31 (25.1-36.5) SECONDS Sodium 142 (137-145) mmol/L Potassium 4.1 (3.4-5.1) mmol/L Chloride 114 H (98-107) mmol/L Carbon Dioxide 11 L (22-32) mmol/L BUN 17 (9-20) mg/dL Creatinine 0.85 (0.66-1.25) mg/dL Estimated GFR > 60 (>60) mL/min BUN/Creatinine Ratio 20.0 (6-22) Glucose 120 H (80-110) mg/dL Lactate 7.2 H* (0.7-2.1) mmol/L Calcium 8.6 (8.4-10.2) mg/dL Total Bilirubin 1.2 (0.2-1.3) mg/dL AST 72 H (17-59) IU/L ALT 36 (<50) IU/L Alkaline Phosphatase 85 (38-126) U/L Ammonia 11 (9-30) umol/L Total Creatine Kinase 1106 H (55-170) U/L Troponin I 0.023 (0.01-0.034) ng/mL Total Protein 7.2 (6.3-8.2) g/dL Albumin 4.6 (3.5-5.0) g/dL Globulin 2.6 (1.7-4.1) g/dL Albumin/Globulin Ratio 1.8 (1.0-2.8) Procalcitonin 1.39 H (<0.5) ng/mL TSH 1.32 (0.47-4.68) uIU/mL Prolactin TNP Cancelled 11.4 Urine Color Urine Appearance Urine pH (4.5-8.0) Ur Specific [place] (1.000-1.035) Urine Protein (Negative) Urine Glucose (UA) (Negative) g/dL Urine Ketones (NEGATIVE) Urine Occult Blood (Negative) Urine Nitrate (Negative) Urine Bilirubin (NEGATIVE) Urine Urobilinogen (0.2) E.U./dL Ur Leukocyte Esterase (NEGATIVE) Urine RBC (0-5/HPF) Urine WBC (0-5/HPF) Ur Squamous Epith Cells (0-5/HPF) Urine Bacteria (None) Urine Mucus (Negative) Ur Culture Indicated? Vol Urine Centrifuged Salicylates < 1.0 (<20) mg/dL U Opiates 300ng/mL cut (Negative) Ur Oxycodone Screen (Negative) Urine Methadone Screen (Negative) Acetaminophen < 10 (10-30) ug/mL Ur Barbiturates Screen (Negative) U Tricyclic Antidepress (Negative) Ur Phencyclidine Scrn (Negative) Ur Amphetamines Screen (Negative) U Methamphetamines Scrn (Negative) Ur MDMA Scrn (Ecstasy) (Negative) U Benzodiazepines Scrn (Negative) Urine Cocaine Screen (Negative) U Marijuana (THC) Screen (Negative) Urine Specific [place] (Normal) Ethyl Alcohol 45 H ( - 10) mg/dL Ur Creatinine (Normal) Chlamy pneumoniae PCR (Not Detect) Adenovirus (PCR) (Not Detect) B.parapertussis DNA PCR (Not Detecte) Coronavirus OC43 (PCR) (Not Detect) Coronavirus HKU1 (PCR) (Not Detect) Coronavirus 229E (PCR) (Not Detect) SARS-CoV-2 (PCR) (Not Detecte) Coronavirus NL63 (PCR) (Not Detect) Human Metapneumovir PCR (Not Detect) Influenza Type A (PCR) (Not Detect) Influenza Type B (PCR) (Not Detect) M. pneumoniae (PCR) (Not Detect) Parainfluenza 1 (PCR) (Not Detect) Parainfluenza 2 (PCR) (Not Detect) Parainfluenza 3 (PCR) (Not Detect) Parainfluenza 4 (PCR) (Not Detect) RSV (PCR) (Not Detect) Entero/Rhino (PCR) (Not Detect) 01/30/24 01/30/24 01/30/24 Range/Units 08:36 09:47 09:47 WBC (4.5-11.0) X10^3/uL RBC (4.5-5.9) X10^6/uL Hgb (13.5-17.5) g/dL Hct (41-53) % MCV (80-100) fL MCH (26-34) PG MCHC (30-36) % RDW (11.6-14.8) % Plt Count (150-400) X10^3/uL Neut % (Auto) (50-75) % Lymph % (Auto) (25-40) % [place] % (Auto) (3-14) % Eos % (Auto) (2-4) % Baso % (Auto) (0-2) % Neut # (Auto) (8217-7519) /uL Lymph # (Auto) (8986-1760) /uL [place] # (Auto) (0-900) /uL Eos # (Auto) (0-450) /uL Baso # (Auto) (0-100) /uL PT (9.4-12.5) SECONDS INR (0.9-1.3) APTT (25.1-36.5) SECONDS Sodium (137-145) mmol/L Potassium (3.4-5.1) mmol/L Chloride (98-107) mmol/L Carbon Dioxide (22-32) mmol/L BUN (9-20) mg/dL Creatinine (0.66-1.25) mg/dL Estimated GFR (>60) mL/min BUN/Creatinine Ratio (6-22) Glucose (80-110) mg/dL Lactate (0.7-2.1) mmol/L Calcium (8.4-10.2) mg/dL Total Bilirubin (0.2-1.3) mg/dL AST (17-59) IU/L ALT (<50) IU/L Alkaline Phosphatase (38-126) U/L Ammonia (9-30) umol/L Total Creatine Kinase (55-170) U/L Troponin I (0.01-0.034) ng/mL Total Protein (6.3-8.2) g/dL Albumin (3.5-5.0) g/dL Globulin (1.7-4.1) g/dL Albumin/Globulin Ratio (1.0-2.8) Procalcitonin (<0.5) ng/mL TSH (0.47-4.68) uIU/mL Prolactin Urine Color Yellow Urine Appearance Clear Urine pH 5.0 Normal (4.5-8.0) Ur Specific [place] >=1.030 H (1.000-1.035) Urine Protein Trace H (Negative) Urine Glucose (UA) Negative (Negative) g/dL Urine Ketones 1+ H (NEGATIVE) Urine Occult Blood 3+ H (Negative) Urine Nitrate Negative (Negative) Urine Bilirubin Negative (NEGATIVE) Urine Urobilinogen 0.2 (0.2) E.U./dL Ur Leukocyte Esterase Negative (NEGATIVE) Urine RBC 10-30/hpf H (0-5/HPF) Urine WBC 0-1/hpf (0-5/HPF) Ur Squamous Epith Cells 5-10 /hpf H (0-5/HPF) Urine Bacteria None seen (None) Urine Mucus 1+ H (Negative) Ur Culture Indicated? Cult not indicated Vol Urine Centrifuged 10ml (spun) Salicylates (<20) mg/dL U Opiates 300ng/mL cut Negative (Negative) Ur Oxycodone Screen Negative (Negative) Urine Methadone Screen Negative (Negative) Acetaminophen (10-30) ug/mL Ur Barbiturates Screen Negative (Negative) U Tricyclic Antidepress Negative (Negative) Ur Phencyclidine Scrn Negative (Negative) Ur Amphetamines Screen Negative (Negative) U Methamphetamines Scrn Negative (Negative) Ur MDMA Scrn (Ecstasy) Negative (Negative) U Benzodiazepines Scrn Negative (Negative) Urine Cocaine Screen Negative (Negative) U Marijuana (THC) Screen Negative (Negative) Urine Specific [place] Normal (Normal) Ethyl Alcohol ( - 10) mg/dL Ur Creatinine Normal (Normal) Chlamy pneumoniae PCR Not detected (Not Detect) Adenovirus (PCR) Not detected (Not Detect) B.parapertussis DNA PCR Not detected (Not Detecte) Coronavirus OC43 (PCR) Not detected (Not Detect) Coronavirus HKU1 (PCR) Not detected (Not Detect) Coronavirus 229E (PCR) Not detected (Not Detect) SARS-CoV-2 (PCR) Not detected (Not Detecte) Coronavirus NL63 (PCR) Not detected (Not Detect) Human Metapneumovir PCR Not detected (Not Detect) Influenza Type A (PCR) Not detected (Not Detect) Influenza Type B (PCR) Not detected (Not Detect) M. pneumoniae (PCR) Not detected (Not Detect) Parainfluenza 1 (PCR) Not detected (Not Detect) Parainfluenza 2 (PCR) Not detected (Not Detect) Parainfluenza 3 (PCR) Not detected (Not Detect) Parainfluenza 4 (PCR) Not detected (Not Detect) RSV (PCR) Not detected (Not Detect) Entero/Rhino (PCR) Not detected (Not Detect) 01/30/24 01/30/24 Range/Units 09:52 12:25 WBC (4.5-11.0) X10^3/uL RBC (4.5-5.9) X10^6/uL Hgb (13.5-17.5) g/dL Hct (41-53) % MCV (80-100) fL MCH (26-34) PG MCHC (30-36) % RDW (11.6-14.8) % Plt Count (150-400) X10^3/uL Neut % (Auto) (50-75) % Lymph % (Auto) (25-40) % [place] % (Auto) (3-14) % Eos % (Auto) (2-4) % Baso % (Auto) (0-2) % Neut # (Auto) (0769-4825) /uL Lymph # (Auto) (7555-8527) /uL [place] # (Auto) (0-900) /uL Eos # (Auto) (0-450) /uL Baso # (Auto) (0-100) /uL PT (9.4-12.5) SECONDS INR (0.9-1.3) APTT (25.1-36.5) SECONDS Sodium (137-145) mmol/L Potassium (3.4-5.1) mmol/L Chloride (98-107) mmol/L Carbon Dioxide (22-32) mmol/L BUN (9-20) mg/dL Creatinine (0.66-1.25) mg/dL Estimated GFR (>60) mL/min BUN/Creatinine Ratio (6-22) Glucose (80-110) mg/dL Lactate 4.3 H* 1.7 (0.7-2.1) mmol/L Calcium (8.4-10.2) mg/dL Total Bilirubin (0.2-1.3) mg/dL AST (17-59) IU/L ALT (<50) IU/L Alkaline Phosphatase (38-126) U/L Ammonia (9-30) umol/L Total Creatine Kinase (55-170) U/L Troponin I (0.01-0.034) ng/mL Total Protein (6.3-8.2) g/dL Albumin (3.5-5.0) g/dL Globulin (1.7-4.1) g/dL Albumin/Globulin Ratio (1.0-2.8) Procalcitonin (<0.5) ng/mL TSH (0.47-4.68) uIU/mL Prolactin Urine Color Urine Appearance Urine pH (4.5-8.0) Ur Specific [place] (1.000-1.035) Urine Protein (Negative) Urine Glucose (UA) (Negative) g/dL Urine Ketones (NEGATIVE) Urine Occult Blood (Negative) Urine Nitrate (Negative) Urine Bilirubin (NEGATIVE) Urine Urobilinogen (0.2) E.U./dL Ur Leukocyte Esterase (NEGATIVE) Urine RBC (0-5/HPF) Urine WBC (0-5/HPF) Ur Squamous Epith Cells (0-5/HPF) Urine Bacteria (None) Urine Mucus (Negative) Ur Culture Indicated? Vol Urine Centrifuged Salicylates (<20) mg/dL U Opiates 300ng/mL cut (Negative) Ur Oxycodone Screen (Negative) Urine Methadone Screen (Negative) Acetaminophen (10-30) ug/mL Ur Barbiturates Screen (Negative) U Tricyclic Antidepress (Negative) Ur Phencyclidine Scrn (Negative) Ur Amphetamines Screen (Negative) U Methamphetamines Scrn (Negative) Ur MDMA Scrn (Ecstasy) (Negative) U Benzodiazepines Scrn (Negative) Urine Cocaine Screen (Negative) U Marijuana (THC) Screen (Negative) Urine Specific [place] (Normal) Ethyl Alcohol ( - 10) mg/dL Ur Creatinine (Normal) Chlamy pneumoniae PCR (Not Detect) Adenovirus (PCR) (Not Detect) B.parapertussis DNA PCR (Not Detecte) Coronavirus OC43 (PCR) (Not Detect) Coronavirus HKU1 (PCR) (Not Detect) Coronavirus 229E (PCR) (Not Detect) SARS-CoV-2 (PCR) (Not Detecte) Coronavirus NL63 (PCR) (Not Detect) Human Metapneumovir PCR (Not Detect) Influenza Type A (PCR) (Not Detect) Influenza Type B (PCR) (Not Detect) M. pneumoniae (PCR) (Not Detect) Parainfluenza 1 (PCR) (Not Detect) Parainfluenza 2 (PCR) (Not Detect) Parainfluenza 3 (PCR) (Not Detect) Parainfluenza 4 (PCR) (Not Detect) RSV (PCR) (Not Detect) Entero/Rhino (PCR) (Not Detect) Critical Care Time <Nicole Kahn DO - Last Filed: 01/30/24 18:43> Critical Care Time Critical Care Time: Yes Total Critical Care Time: 64 Attestation: The high probability of a clinically significant, sudden or life threatening deterioration of the neurovascular system(s) required my full and direct attention, intervention and personal management. The aggregate critical care time was 64 minutes. This time is in addition to time spent performing reported procedures but includes the following: [x] Data Review and interpretation [x] Patient assessment and monitoring of vital signs [x] Documentation [x] Medication orders and management Discharge Plan Departure Patient Disposition: [facility] Clinical Impression: Subarachnoid hemorrhage, Subdural hemorrhage, Sepsis, Alcohol withdrawal, Alzheimer's dementia, Rhabdomyolysis Prescriptions: No Action sildenafil [Viagra] 100 mg tablet 100 mg PO DAILY PRN (Reason: sexual activity) Qty: 10 5RF levetiracetam [Keppra] 500 mg tablet 500 mg PO BID Qty: 180 0RF Rx Instructions: please notify patient, needs to be seen in office rosuvastatin 10 mg tablet 10 mg PO BEDTIME Qty: 90 3RF Rx Instructions: Take one tablet at bedtime for high cholesterol. terazosin 5 mg capsule 5 mg PO QDAY Qty: 30 0RF Rx Instructions: Must be seen for refills Referrals: Kavon Call MD [Primary Care Provider] -
[2024-01-30 07:45] LABS: Add Manual Diff / Slide Review NO; Basophils Absolute Auto 0 /uL (0-100); Basophils Percent Auto 0.2 % (0-2); Eosinophils Absolute Auto 0 /uL (0-450); Hematocrit 40.2 % (41-53); Hemoglobin 13.3 g/dL (13.5-17.5); Lymphocytes Absolute Auto 400 /uL (1100-4500); Lymphocytes Percent Auto 2.4 % (25-40); Mean Corpuscular HGB Conc 33.1 % (30-36); Mean Corpuscular Hemoglobin 32.7 PG (26-34); Mean Corpuscular Volume 98.5 fL (80-100); Monocytes Absolute Auto 1800 /uL (0-900); Monocytes Percent Auto 11.1 % (3-14); Neutrophils Absolute Auto 13900 /uL (1500-7000); Neutrophils Percent Auto 86.3 % (50-75); Platelet Count 176 X10^3/uL (150-400); Red Blood Cell Count 4.08 X10^6/uL (4.5-5.9); Red Cell Distribution Width 14.1 % (11.6-14.8); White Blood Cell Count 16.1 X10^3/uL (4.5-11.0)
[2024-01-30] MEDS: SODIUM CHLORIDE 0.9% 1,000 ML 150 ML IV ×2 (07:45→14:59)
[2024-01-30 07:52] LABS: INR 1.1 (0.9-1.3); Prothrombin Time 12.4 SECONDS (9.4-12.5)
[2024-01-30 07:54] LABS: PTT Partial Thromboplastin Tim 31 SECONDS (25.1-36.5)
[2024-01-30 07:56] LABS: Ammonia (NH3) 11 umol/L (9-30)
[2024-01-30 07:58] LABS: Acetaminophen < 10 ug/mL (10-30); Alanine Aminotransferase 36 IU/L (<50); Albumin 4.6 g/dL (3.5-5.0); Albumin Globulin Ratio 1.8 (1.0-2.8); Alkaline Phosphatase 85 U/L (38-126); Aspartate Aminotransferase 72 IU/L (17-59); Bilirubin Total 1.2 mg/dL (0.2-1.3); Blood Urea Nitrogen 17 mg/dL (9-20); Calcium 8.6 mg/dL (8.4-10.2); Carbon Dioxide 11 mmol/L (22-32); Chloride 114 mmol/L (98-107); Creatine Kinase 1106 U/L (55-170); Estimated Glomerular Filt Rate > 60 mL/min (>60); Ethanol (ETOH) 45 mg/dL; Globulin 2.6 g/dL (1.7-4.1); Glucose 120 mg/dL (80-110); Potassium 4.1 mmol/L (3.4-5.1); Salicylate < 1.0 mg/dL (<20); Sodium 142 mmol/L (137-145); Total Protein 7.2 g/dL (6.3-8.2)
[2024-01-30 08:09] LABS: HEMOLYSIS 64 (0-50); Troponin I 0.023 ng/mL (0.01-0.034)
[2024-01-30 08:13] LABS: Lactate (Lactic Acid) 7.2 mmol/L (0.7-2.1)
[2024-01-30 08:14] LABS: Procalcitonin 1.39 ng/mL (<0.5)
[2024-01-30] MEDS: PIPERACILLIN/TAZO 4.5 GM in SODIUM CHLORIDE 0.9% 100 ML IV (08:34)
--- NOTE | 2024-01-30 09:00 | PC.NURSE ---
Pt attempted to used urinal, declined assistance and asked RN to leave the room for privacy. Pt given urinal and instructed on use while in bed. Pt then got up out of bed and fell, hit left side of eye/forehead, bleeding. Provider and mutiple staff to room. C spine precautions maintained and pt lifted back to stretcher. Once back to stretcher pt continued state he needed to urinate. Bleeding on forehead controlled with gauze/coband. C collar placed. Pt left wrist IV was pulled out. New IV placed in left forearm via ultrasound. Vitals remain at baseline. Pt awake, knows he is at the hospital, thinks he is in [place]. When asked about pain, pt states only discomfort is right elbow. No new injuries observed and once repositioned, pt denies any pain. Lawrence catheter placed, pt states thats better. RNs with pt to CT scan. Vitals remain stable. Pt responds when spoken to and asked about pain/discomfort. Cooperative with care and able to remain still for imaging.
[2024-01-30 09:10] LABS: Prolactin 11.4 ng/mL (3.7-17.9)
[2024-01-30] MEDS: BACITRACIN OINT 0.9 GM PCKT 5 APPLIC TOP (09:13)
[2024-01-30 09:15] LABS: Reflexed Lactate in 2 Hours Y
[2024-01-30 09:23] LABS: Thyroid Stimulating Hormone 1.32 uIU/mL (0.47-4.68)
--- NOTE | 2024-01-30 09:33 | DI.CT.S_ITS ---
PROCEDURE: CT HEAD/BRAIN WO CON INDICATIONS: fall in ED TECHNIQUE: Noncontrast 4.5 mm thick angled axial sections acquired from the foramen magnum to the vertex, with coronal and sagittal reformats. For radiation dose reduction, the following was used: automated exposure control, adjustment of mA and/or kV according to patient size. COMPARISON: [facility], CT, CT ANGIO HEAD AND NECK, 06/12/2021, 8:01. [facility], CT, CT CERVICAL SPINE WO CON, 01/30/2024, 9:52. [facility], CT, CT FACIAL BONES WO CON, 01/30/2024, 6:56. [facility], CT, CT HEAD/BRAIN WO CON, 01/30/2024, 6:56. FINDINGS: Image quality: Diagnostic. CSF spaces: Basal cisterns are patent. No extra-axial fluid collections. The ventricles are symmetric in size and shape. Brain: Scattered mild areas of subarachnoid hemorrhage can be seen, which are primarily seen superiorly and are seen on both sides. These are similar to the prior examination. There is also a small amount of subarachnoid hemorrhage seen along the posterior falx and along the right tentorium, which is likely blood redistributed from the prior. Stable hemorrhage is also seen within the right perimesencephalic cistern. No intracranial masses. There is cerebral volume loss for age, with resultant ventricular and sulcal prominence. There are periventricular and deep white matter chronic small vessel ischemic changes. There is intracranial internal carotid artery atherosclerosis. Skull and face: Focal hematoma can be seen involving the left periorbital region, which is slightly worse than on the CT performed earlier in the day. There is stable repair of soft tissue laceration seen involving the occiput on both sides, with hematoma, left worse than right. No associated fractures are seen. Sinuses: Visualized sinuses and mastoids are clear. IMPRESSION: Left periorbital scalp hematoma seen, which is slightly worse than on the images performed earlier in the day. Stable repaired lacerations with hematoma involving the occipital regions, left worse than right. No associated fractures are seen. Stable multifocal intracranial hemorrhage can be seen. Dictated by: Keo Patrick M.D. on 01/30/2024 at 9:10 Approved by: Keo Patrick M.D. on 01/30/2024 at 9:16
--- NOTE | 2024-01-30 09:33 | DI.CT.S_ITS ---
PROCEDURE: CT CERVICAL SPINE WO CON INDICATIONS: fall TECHNIQUE: Noncontrast 3 mm thick sections acquired from the skull base to the T4 level. Sagittal and coronal reformats were then constructed. For radiation dose reduction, the following was used: automated exposure control, adjustment of mA and/or kV according to patient size. COMPARISON: [facility], CT, CT HEAD/BRAIN WO CON, 01/30/2024, 9:52. [facility], CT, CT ANGIO HEAD AND NECK, 06/12/2021, 8:01. [facility], CT, CT CERVICAL SPINE WO CON, 01/30/2024, 6:56. FINDINGS: Image quality: Excellent. Bones: There is mild inferior endplate compression of C6 and mild superior endplate compression of C7 which have occurred since the previous CT angiogram of 2020. Cannot exclude acute or subacute fracture. There is a chronic moderate T4 compression.. Visualized superior ribs are intact. Diffuse cervical spondylitic change. Most notably is prominent bilateral facet arthropathy. Soft tissues: Prevertebral soft tissues are normal in thickness. No paravertebral hematomas. No apical pneumothoraces. IMPRESSION: 1. Inferior endplate compression of C6 and superior endplate compression of C7 are of unknown chronicity. 2. Old T4 compression. 3. Cervical spondylosis. Comment: Consider MRI the cervical spine to check for fracture acuity. Comment: Findings were discussed with Dr. Kahn on 01/30/2024 at 1024 hours Dictated by: Saroj Blankenship M.D. on 01/30/2024 at 10:09 Approved by: Saroj Blankenship M.D. on 01/30/2024 at 10:26
[2024-01-30 09:34] LABS: Adenovirus Not Detected (Not Detect); B. parapertussis Not Detected (Not Detecte); Bordetella pertussis Not Detected (Not Detect); Chlamydophila pneumoniae Not Detected (Not Detect); Coronavirus 229E Not Detected (Not Detect); Coronavirus HKU1 Not Detected (Not Detect); Coronavirus NL 63 Not Detected (Not Detect); Coronavirus OC43 Not Detected (Not Detect); Human Metapneumovirus Not Detected (Not Detect); Human Rhinovirus/Enterovirus Not Detected (Not Detect); Influenza A Not Detected (Not Detect); Influenza B Not Detected (Not Detect); Mycoplasma pneumoniae Not Detected (Not Detect); Parainfluenza Virus 1 Not Detected (Not Detect); Parainfluenza Virus 2 Not Detected (Not Detect); Parainfluenza Virus 3 Not Detected (Not Detect); Parainfluenza Virus 4 Not Detected (Not Detect); Respiratory Syncytial Virus Not Detected (Not Detect); SARS- CoV-2 Not Detected (Not Detecte)
[2024-01-30] MEDS: LACTATED RINGERS 2,381.37 ML 793.79 ML IV (09:40)
[2024-01-30 10:22] LABS: Lactate 2HR (Lactic Acid Rflx) 4.3 mmol/L (0.7-2.1)
--- NOTE | 2024-01-30 10:22 | ED.CALLS ---
Critical Lab result: Lactate 4.[address] Kahn @ [id number].
[2024-01-30 10:27] LABS: Appearance Urine UA CLEAR; Bilirubin Urine UA NEGATIVE (NEGATIVE); Color Urine UA YELLOW; Glucose Urine UA NEGATIVE (Negative); Ketones Urine UA 1+ (NEGATIVE); Leukocyte Esterase Urine UA NEGATIVE (NEGATIVE); Nitrite Urine UA NEGATIVE (Negative); Occult Blood Urine UA 3+ (Negative); Protein Urine UA TRACE (Negative); Specific Gravity Urine UA >=1.030 (1.000-1.035); Urobilinogen Urine UA 0.2 E.U./dL (0.2)
[2024-01-30 10:32] LABS: UR Morphine/Opiate cutoff 300 Negative (Negative); Ur Creatinine Normal (Normal); Ur Specific Gravity Normal (Normal); Urine Amphetamines Negative (Negative); Urine Barbiturates Negative (Negative); Urine Benzodiazepines Negative (Negative); Urine Cocaine Negative (Negative); Urine MDMA Negative (Negative); Urine Methadone Negative (Negative); Urine Methamphetamines Negative (Negative); Urine Oxycodone Negative (Negative); Urine Phencyclidine Negative (Negative); Urine Tetrahydrocannabinol Negative (Negative); Urine Tricyclic Antidepressant Negative (Negative); Urine pH Normal (Normal)
[2024-01-30 10:37] LABS: Bacteria Urine None Seen; Culture Indicated Urine Cult Not Indicated; Mucus Urine 1+ (Negative); RBC Urine 10-30/HPF (0-5/HPF); Squamous Epithelial Cell Urine 5-10 /HPF (0-5/HPF); Urine Volume 10mL (spun); WBC Urine 0-1/HPF (0-5/HPF)
[2024-01-30] MEDS: diazePAM 10 MG/2 ML SYRINGE 5 MG IV (11:24)
--- NOTE | 2024-01-30 11:54 | PC.NURSE ---
Pt awake/alert, pulling at/removed coband dressings on head, arm and finger, agitated and states I want to be up. Raised head of bed. 3 staff members in room. Pt continues to move/swing arms. Provider notified and new order for Valium received as pharmacy currently looking to see if ativan that was initially ordered is available. 5mg valium given. Legs out between bed rail. Seizure pads placed to prevent injury/pressure to legs from side rails. Pt has slowly calmed. New, gentle border dressings placed to skin tears/abrasions on arms and legs. Vitals remain stable/at baseline.
[2024-01-30] MEDS: HALOPERIDOL 5 MG/ML VIAL 2 MG IV (12:21)
--- NOTE | 2024-01-30 13:00 | DI.CT.S_ITS ---
PROCEDURE: CT HEAD/BRAIN WO CON INDICATIONS: repeat for SAH and SDH TECHNIQUE: Noncontrast 4.5 mm thick angled axial sections acquired from the foramen magnum to the vertex, with coronal and sagittal reformats. For radiation dose reduction, the following was used: automated exposure control, adjustment of mA and/or kV according to patient size. COMPARISON: [facility], CT, CT HEAD/BRAIN WO CON, 01/30/2024, 9:52. [facility], CT, CT HEAD/BRAIN WO CON, 01/30/2024, 6:56. FINDINGS: Image quality: Diagnostic. CSF spaces: Basal cisterns are patent. No extra-axial fluid collections. The ventricles are symmetric in size and shape. Brain: No definite interval worsening in the previously documented scattered foci subarachnoid hemorrhage in this patient developed after trauma. There is a small amount of subdural hemorrhage also present, layering along the tentorium. This also does not appear to have changed. A small amount blood products have collected within the posterior aspect of the lateral ventricles, within the occipital horns. This was not present earlier same day with imaging obtained at approximately 9:56 a.m. Versus is the current study time 1:17 p.m. There is cerebral volume loss for age, with resultant ventricular and sulcal prominence. There are periventricular and deep white matter chronic small vessel ischemic changes. There is intracranial internal carotid artery atherosclerosis. Skull and face: Calvarium and visualized facial bones appear unchanged, left periorbital trauma, without suspicious lesions. Scalp laceration metallic sutures are again noted. Sinuses: Visualized sinuses and mastoids are clear. IMPRESSION: Scattered foci of subarachnoid and subdural hemorrhage have not definitely worsened over the convexities and the tentorium, respectively. There has been interval development bilateral symmetric blood products within the occipital horns of each lateral ventricle, mild in overall severity, but not present on the CT scanning from earlier same day. It is unclear whether this represents redistribution of previously present blood products or evidence of a small degree of interval worsening of subarachnoid hemorrhage. Follow-up in 6 hours likely is warranted depending on the clinical status. Dictated by: Abdoulaye Thomas M.D. on 01/30/2024 at 13:43 Approved by: Abdoulaye Thomas M.D. on 01/30/2024 at 13:52
[2024-01-30 13:04] LABS: Lactate (Lactic Acid) 1.7 mmol/L (0.7-2.1)
--- NOTE | 2024-01-30 15:19 | PC.NURSE ---
Assumed care of patient. Patient currently appears to be resting comfortably, responsive to voice/touch but did not respond verbally nor keep eye open long. Patient was previously given medications for agitation. Left eye swollen shut after fall earlier today. VSS, catheter patent and draining.
[2024-01-30] MEDS: THIAMINE 200 MG in SODIUM CHLORIDE 0.9% 100 ML 408 MG IV (15:29)
[2024-01-30] MEDS: PIPERACILLIN/TAZO 3.375 GM in SODIUM CHLORIDE 0.9% 100 ML IV (15:44)
[2024-02-02 19:38] LABS: Osmolality, Serum 313 mOsmol/kg (280-301)
== END 2024-01-30 16:52 | disposition short-term general hospital (02) ==
PROVIDERS: Emergency Provider Emergency Medicine; Family Provider Family Medicine; PCP Family Medicine
DX: S06.6XAA Traumatic subarachnoid hemorrhage with loss of consciousness status unknown, initial encounter (principal); S06.5XAA Traumatic subdural hemorrhage with loss of consciousness status unknown, initial encounter; A41.9 Sepsis, unspecified organism; F10.239 Alcohol dependence with withdrawal, unspecified; G30.9 Alzheimer's disease, unspecified; F02.80 Dementia in other diseases classified elsewhere, unspecified severity, without behavioral disturbance, psychotic disturbance, mood disturbance, and anxiety; M62.82 Rhabdomyolysis; X58.XXXA Exposure to other specified factors, initial encounter
CPT/HCPCS: 12005; 12011; 70450; 70486; 71045; 72125; 80053; 80305; 80320; 80329; 81001; 82140; 82550; 82962; 83605; 83930; 84145; 84146; 84443; 84484; 85025; 85610; 85730; 87086; 87633; 93005; 96365; 96366; 96375; 99285; 99291; G0480; J1630; J2543; J3360